=== PATIENT | female | born 1955 | race Caucasian/White ===

== ENCOUNTER 2017-10-09 12:34 | Inpatient (IN) | payer BC ==
--- NOTE | 2017-10-09 14:19 | PDOC ---
History of Present Illness - General Chief Complaint: Pain Stated Complaint: ABD CRAMPS Time Seen by Provider: 10/09/17 13:57 History Source: Patient Exam Limitations: No Limitations - History of Present Illness Initial Comments: CHIEF COMPLAINT: 62 y/o afebrile female with PMH NIDDM c/o worsening lower abdominal cramping for the past 3 days. HISTORY OF PRESENT ILLNESS: The patient admits to nausea and loose stools. She denies fever, chills, vomiting, CP, SOB, back pain, hematuria, dysuria. She has not taken anything for pain today. She does admit her and her ate out 4 days ago - she had chicken wings and salad but does not believe the salad had angie lettuce in it. Vital signs on arrival are notable for pulse of 99. REVIEW OF SYSTEMS: GENERAL/CONSTITUTIONAL: No fever/chills. No weakness. No weight change. HEAD, EYES, EARS, NOSE AND THROAT: No change in vision. No ear pain or discharge. No sore throat. CARDIOVASCULAR: No chest pain or shortness of breath. RESPIRATORY: No cough, wheezing, or hemoptysis. GASTROINTESTINAL: +abdominal cramping with nausea and loose stools. No vomiting or constipation. GENITOURINARY: No dysuria, frequency, or change in urination. MUSCULOSKELETAL: No joint or muscle swelling or pain. No neck or back pain. SKIN: No rash or easy bruising. NEUROLOGIC: No headache, vertigo, loss of consciousness, or loss of sensation. PHYSICAL EXAM: GENERAL: The patient is awake, alert, and fully oriented, in moderate discomfort. HEAD: Normal with no signs of trauma. ENT: Pupils equal, round and reactive to light, extraocular movements intact, sclera anicteric, conjunctiva clear. Neck supple. LUNGS: Clear to auscultation bilaterally. Normal excursion. No respiratory distress or use of accessory muscles. CV: RRR, S1/S2, no MRG. Cap refill < 2 sec. ABDOMEN: +[place] TTP. +TTP of suprapubic and LLQ. Passive guarding. +psoas sign. Negative orburator sign. No rebound TTP. Negative Susy sign. Decreased BS in lower quadrants. Soft, non-distended. EXTREMITIES: Normal range of motion, no edema. NEUROLOGICAL: Normal speech, normal gait. CN II-XII grossly intact. SKIN: Warm, dry, normal turgor, no rashes or lesions noted. Past History - Past Medical History Allergies/Adverse Reactions: Allergies Allergy/AdvReac Type Severity Reaction Status Date / Time Nitrate Analogues Allergy Verified 10/09/17 14:36 nitrates Allergy Intermediate sleepy Uncoded 09/09/15 14:59 Home Medications: Ambulatory Orders metFORMIN HCL [Glucophage -] 500 mg PO DAILY 11/22/12 Liraglutide [Victoza -] 1.8 mg SQ DAILY@0700 10/09/17 Anemia: Yes Asthma: No Cancer: No Cardiac Disorders: No CVA: No COPD: No CHF: No DVT: No Dementia: No Diabetes: Yes (NIDDM) GI Disorders: No Disorders: Yes (uterine fibroids) HTN: No Hypercholesterolemia: No Kidney Stones: Yes Liver Disease: No Seizures: No Thyroid Disease: No - Surgical History Abdominal Surgery: No Appendectomy: No Cardiac Surgery: No Cholecystectomy: No Lung Surgery: No Neurologic Surgery: No Orthopedic Surgery: No - Reproductive History Tubal Ligation: Yes - Suicide/Smoking/Psychosocial Hx Smoking Status: Yes Smoking History: Never smoked Have you smoked in the past 12 months: No Number of Cigarettes Smoked Daily: 0 If you are a former smoker, when did you quit?: 40YRS AGO Information on smoking cessation initiated: No Hx Alcohol Use: Yes (SOCIAL) Drug/Substance Use Hx: No Substance Use Type: None Hx Substance Use Treatment: No *Physical Exam - Vital Signs Last Vital Signs Temp Pulse Resp BP Pulse Ox 98.3 F 99 H 18 145/81 100 10/09/17 12:44 10/09/17 12:44 10/09/17 12:44 10/09/17 12:44 10/09/17 12:44 ED Treatment Course - LABORATORY CBC & Chemistry Diagram: 10/09/17 14:30 10/09/17 14:30 Medical Decision Making - Medical Decision Making A/P: 62 y/o female with lower abdominal cramping pain, TTP with nausea and loose stools. Will r/o appendicitis, diverticulitis. Plan is as follows: 1. UA/culture/hcg 2. Labs 3. IV fluids 4. IV morphine 5. CT scan abd/pelvis CT scan abd/pelvis IMPRESSION: No evidence of acute appendicitis. Diverticulosis with acute diverticulitis involving the proximal sigmoid colon, questionable couple of tiny extraluminal air pockets, significant stranding of the surrounding fat and a small amount of free fluid without gross evidence of an abscess/drainable collection. Spoke with Dr. Curry who wants her admitted to Dr. Bina Curran is gone, hospitalist handles admission until morning. ADDRESS CHANGE CLERK Ramez accepts admission on behalf of Dr. Grimaldo. Patient and made aware. Patient made NPO, blood cultures and abx ordered. Patient's pain has improved. *DC/Admit/Observation/Transfer Diagnosis at time of Disposition: Diverticulitis - Discharge Dispostion Condition at time of disposition: Stable Admit: Yes - Referrals Referrals: Balta Curry MD [Primary Care Provider] - - Patient Instructions - Post Discharge Activity
[2017-10-09] MEDS ORDERED: SODIUM CHLORIDE 1,000 ML IV STA (14:20)
[2017-10-09] MEDS ORDERED: morphine SULFATE 4 MG/ML VIAL IVPUSH ONE (14:20)
[2017-10-09] MEDS ORDERED: morphine SULFATE 4 MG/ML VIAL ONE ×3 (14:34→20:08)
[2017-10-09 14:38] LABS: BASO % 0.5 % (0-2.0); EOS % 0.7 % (0-4.5); HEMATOCRIT 38.9 % (32.4-45.2); HEMOGLOBIN 13.2 GM/dL (10.7-15.3); LYMPH % 15.1 % (8-40); MCH 27.4 pg (25.7-33.7); MEAN CELL VOLUME 80.5 fl (80-96); MEAN PLT VOLUME 7.5 fl (7.5-11.1); MONO % 8.1 % (3.8-10.2); NEUT % 75.6 % (42.8-82.8); PLATELET COUNT 250 K/MM3 (134-434); RBC 4.84 M/mm3 (3.60-5.2); RDW 13.9 % (11.6-15.6)
[2017-10-09 14:50] LABS: URINE APPEARANCE SLCLOUDY; URINE BILIRUBIN NEGATIVE (<2.0 mg/dL); URINE BLOOD 1+ (NEGATIVE); URINE COLOR YELLOW; URINE GLUCOSE (UA) 1+ (NEGATIVE); URINE KETONE NEGATIVE (NEGATIVE); URINE LEUK ESTERASE NEGATIVE (NEGATIVE); URINE NITRITE NEGATIVE (NEGATIVE); URINE PROTEIN NEGATIVE (NEGATIVE); URINE UROBILINOGEN NEGATIVE mg/dL (0.2-1.0)
[2017-10-09 14:51] LABS: INR 1.05 (0.82-1.09); PROTHROMBIN TIME (PATIENT) 11.9 SEC (9.7-13.0)
[2017-10-09 14:54] LABS: EPI CELLS RARE /HPF (FEW); URINE MUCUS RARE
[2017-10-09 15:01] LABS: ALBUMIN 3.6 g/dl (3.4-5.0); ANION GAP 7 (8-16); BILIRUBIN,TOTAL 0.7 mg/dL (0.2-1.0); BLOOD UREA NITROGEN 8 mg/dL (7-18); CALCIUM 8.7 mg/dL (8.5-10.1); CHLORIDE 106 mmol/L (98-107); CO2 26 mmol/L (21-32); CREATININE 0.7 mg/dL (0.55-1.02); GLUCOSE,RANDOM 149 mg/dL (74-106); POTASSIUM 3.7 mmol/L (3.5-5.1); SGOT/AST 10 U/L (15-37); SGPT/ALT 15 U/L (12-78); SODIUM 139 mmol/L (136-145)
[2017-10-09 15:02] LABS: ALK PHOS 97 U/L (45-117)
[2017-10-09] MEDS ORDERED: morphine CARPU-JECT 2 MG/1 ML DISP.SYRIN IVPUSH ONE (16:24)
[2017-10-09] MEDS ORDERED: CIPROFLOXACIN 400 MG/D5W 400 MG/200 ML IVPB IVPB ONE (17:32)
--- NOTE | 2017-10-09 17:42 | HP ---
CHIEF COMPLAINT: Abdominal pain PCP: Dr. Curry HISTORY OF PRESENT ILLNESS: 62 year-old female with a PMH significant for NIDDM, kidney stones, uterine fibroids/anemia, and s/p abdominal surgeries (tubal ligation, x 1). Presents to the ED today with lower abdominal cramping, nausea, and loose stools x 3 days. Denies fever, sweats, chills. Denies vomiting. No dysuria, frequency, hematuria or hesitancy. No hematochezia or melena. ER course was notable for: (1) WBC 14.0, p 99, BP 145/81 (2) CTAP: acute diverticulitis of proximal sigmoid colon, questionable couple of tiny extraluminal air pockets, significant stranding of surrounding fat and a small amount of free fluid without gross evidence of abscess/drainable collection Recent Travel: - June (no one ill) PAST MEDICAL HISTORY: NIDDM Kidney stones Uterine fibroids Anemia PAST SURGICAL HISTORY: Tubal ligation C-sections Social History: Smoking: quit 40 years ago Alcohol: social Drugs: no Family History: non-contributoryu Allergies Nitrate Analogues Allergy (Verified 10/09/17 14:36) nitrates Allergy (Intermediate, Uncoded 09/09/15 14:59) sleepy nitrates in foods-will sleep for 3hrs after same HOME MEDICATIONS: Home Medications Medication Instructions Recorded metFORMIN HCL [Glucophage -] 500 mg PO DAILY 11/22/12 Liraglutide [Victoza -] 1.8 mg SQ DAILY@0700 10/09/17 REVIEW OF SYSTEMS CONSTITUTIONAL: Absent: fever, chills, diaphoresis, generalized weakness, malaise, loss of appetite, weight change HEENT: Absent: rhinorrhea, nasal congestion, throat pain, throat swelling, difficulty swallowing, mouth swelling, ear pain, eye pain, visual changes CARDIOVASCULAR: Absent: chest pain, syncope, palpitations, irregular heart rate, lightheadedness , peripheral edema RESPIRATORY: Absent: cough, shortness of breath, dyspnea with exertion, orthopnea, wheezing, stridor, hemoptysis GASTROINTESTINAL: +abdominal pain, nausea, loose stools Absent: abdominal distension, vomiting, constipation, melena, hematochezia GENITOURINARY: Absent: dysuria, frequency, urgency, hesitancy, hematuria, flank pain, genital pain MUSCULOSKELETAL: Absent: myalgia, arthralgia, joint swelling, back pain, neck pain SKIN: Absent: rash, itching, pallor HEMATOLOGIC/IMMUNOLOGIC: Absent: easy bleeding, easy bruising, lymphadenopathy, frequent infections ENDOCRINE: Absent: unexplained weight gain, unexplained weight loss, heat intolerance, cold intolerance NEUROLOGIC: Absent: headache, focal weakness or paresthesias, dizziness, unsteady gait, seizure, mental status changes, bladder or bowel incontinence PSYCHIATRIC: Absent: anxiety, depression, suicidal or homicidal ideation, hallucinations. PHYSICAL EXAMINATION Vital Signs - 24 hr 10/09/17 12:44 Temperature 98.3 F Pulse Rate 99 H Respiratory 18 Rate Blood Pressure 145/81 O2 Sat by Pulse 100 Oximetry (%) GENERAL: Awake, alert, and fully oriented, in no acute distress. HEAD: Normal with no signs of trauma. EYES: Pupils equal, round and reactive to light, extraocular movements intact, sclera anicteric, conjunctiva clear. No lid lag. EARS, NOSE, THROAT: Ears normal, nares patent, oropharynx clear without exudates. Moist mucous membranes. NECK: Normal range of motion, supple without lymphadenopathy, JVD, or masses. LUNGS: Breath sounds equal, clear to auscultation bilaterally. No wheezes, and no crackles. No accessory muscle use. HEART: Regular rate and rhythm, normal S1 and S2 ABDOMEN: Soft, diffusely tender, +guarding; +bowel sounds MUSCULOSKELETAL: Normal range of motion at all joints. No bony deformities or tenderness. No CVA tenderness. UPPER EXTREMITIES: 2+ pulses, warm, well-perfused. No cyanosis. No clubbing. No peripheral edema. LOWER EXTREMITIES: 2+ pulses, warm, well-perfused. No calf tenderness. No peripheral edema. NEUROLOGICAL: Cranial nerves II-XII intact. Normal speech. Laboratory Results - last 24 hr 10/09/17 10/09/17 10/09/17 14:30 14:30 14:30 WBC 14.0 H D RBC 4.84 Hgb 13.2 Hct 38.9 MCV 80.5 MCH 27.4 MCHC 34.0 RDW 13.9 Plt Count 250 MPV 7.5 Neutrophils % 75.6 D Lymphocytes % 15.1 D Monocytes % 8.1 Eosinophils % 0.7 Basophils % 0.5 PT with INR 11.90 INR 1.05 Sodium Potassium Chloride Carbon Dioxide Anion Gap BUN Creatinine Creat Clearance w eGFR Random Glucose Calcium Total Bilirubin AST ALT Alkaline Phosphatase Total Protein Albumin Urine Color Yellow Urine Appearance Slcloudy Urine pH 5.0 Ur Specific [place] 1.021 Urine Protein Negative Urine Glucose (UA) 1+ H Urine Ketones Negative Urine Blood 1+ H Urine Nitrite Negative Urine Bilirubin Negative Urine Urobilinogen Negative Ur Leukocyte Esterase Negative Urine WBC (Auto) 2 Urine RBC (Auto) <1 Ur Epithelial Cells Rare Urine Mucus Rare Blood Type Antibody Screen 10/09/17 10/09/17 14:30 14:30 WBC RBC Hgb Hct MCV MCH MCHC RDW Plt Count MPV Neutrophils % Lymphocytes % Monocytes % Eosinophils % Basophils % PT with INR INR Sodium 139 Potassium 3.7 Chloride 106 Carbon Dioxide 26 Anion Gap 7 L BUN 8 Creatinine 0.7 Creat Clearance w eGFR > 60 Random Glucose 149 H Calcium 8.7 Total Bilirubin 0.7 D AST 10 L ALT 15 Alkaline Phosphatase 97 Total Protein 7.0 Albumin 3.6 Urine Color Urine Appearance Urine pH Ur Specific [place] Urine Protein Urine Glucose (UA) Urine Ketones Urine Blood Urine Nitrite Urine Bilirubin Urine Urobilinogen Ur Leukocyte Esterase Urine WBC (Auto) Urine RBC (Auto) Ur Epithelial Cells Urine Mucus Blood Type O POSITIVE Antibody Screen Negative ASSESSMENT/PLAN 62 year-old female with a PMH significant for NIDDM, kidney stones, uterine fibroids/anemia, and s/p multiple abdominal surgeries (tubal ligation, C- section x 1). Admitted for sepsis secondary to diverticulitis. Sepsis secondary to diverticulitis --on admission WBC 14.0, p 99, diverticulitis on CTAP --lactic acid x 2 pending --given 1L NS in ED; bolus a second liter NS now, then continue @100mL/hr --start ceftriaxone and IV metronidazole --morphine, Tylenol PRN for pain --colonoscopy 3 months ago; advised of diverticulosis and single polyp removed --surgical and GI consults requested NIDDM --Novolog sliding scale coverage Kidney stones --no acute issues Uterine fibroids/anemia --h/h stable FEN Fluids: as above Electrolytes: replete as indicated Nutrition: NPO DVT prophylaxis: subq heparin Dispo: continues to require inpatient care. Full Code. Visit type - Emergency Visit Emergency Visit: Yes ED Registration Date: 10/09/17 Care time: The patient presented to the Emergency Department on the above date and was hospitalized for further evaluation of their emergent condition. - New Patient This patient is new to me today: Yes Date on this admission: 10/09/17 - Critical Care Critical Care patient: No Hospitalist Screening - Colonoscopy Questionnaire Colonoscopy Questionnaire: Colonoscopy Questionnaire - Patient: 50 - 75 years old and never had a screening colonoscopy: No History of colon or rectal polyps, or CA: No History of IBD, Crohn's disease or UC: No History of abdominal radiation therapy as a child: No - Relative: 1 with colon or rectal CA, or polyps at age 60 or younger: Unknown Colon or rectal CA diagnosed at age 45 or younger: Unknown Multiple relatives with colon or rectal CA: Unknown (Colonoscopy 3 months ago; single polyp removed) - Outcome: Screening Result: Negative Screen
[2017-10-09] MEDS ORDERED: CEFTRIAXONE 2 GM/100 ML BAG IVPB ONE (18:27)
[2017-10-09] MEDS: CEFTRIAXONE 2 GM-D5W BAG 2 GM/50 ML BAG IVPB SCH (18:29)
[2017-10-09] MEDS ORDERED: SODIUM CHLORIDE 500 ML IV STA (18:41)
[2017-10-09] MEDS: SODIUM CHLORIDE 1,000 ML IV SCH ×2 (19:11→23:57)
[2017-10-09] MEDS ORDERED: morphine CARPU-JECT 2 MG/1 ML DISP.SYRIN IVPUSH PRN (19:29)
[2017-10-09] MEDS: morphine SULFATE 4 MG/ML VIAL IVPUSH PRN (20:15)
[2017-10-09] MEDS: INSULIN SLIDING SCALE (NOVOLOG) 1 VIAL SQ SCH (22:18)
[2017-10-09 23:51] VITALS: BMI 34.9
[2017-10-10] MEDS: morphine SULFATE 4 MG/ML VIAL IVPUSH PRN ×4 (00:23→22:55)
[2017-10-10] MEDS: HEPARIN NA (PORCINE) 5,000 UNITS/ML 1ML VIAL SQ SCH ×3 (05:52→21:23)
[2017-10-10] MEDS: INSULIN SLIDING SCALE (NOVOLOG) 1 VIAL SQ SCH ×4 (06:02→21:49)
[2017-10-10 07:47] LABS: BASO % 0.3 % (0-2.0); EOS % 0.4 % (0-4.5); HEMATOCRIT 36.1 % (32.4-45.2); HEMOGLOBIN 12.3 GM/dL (10.7-15.3); MCH 27.4 pg (25.7-33.7); MCHC 34.2 g/dl (32.0-36.0); MEAN PLT VOLUME 7.8 fl (7.5-11.1); MONO % 9.3 % (3.8-10.2); PLATELET COUNT 230 K/MM3 (134-434); RBC 4.51 M/mm3 (3.60-5.2); RDW 13.7 % (11.6-15.6); WHITE BLOOD COUNT 14.7 K/mm3 (4.0-10.0)
[2017-10-10 08:07] LABS: ALBUMIN 3.2 g/dl (3.4-5.0); ANION GAP 10 (8-16); BLOOD UREA NITROGEN 5 mg/dL (7-18); CALCIUM 8.3 mg/dL (8.5-10.1); CHLORIDE 103 mmol/L (98-107); CO2 26 mmol/L (21-32); MAGNESIUM 1.7 mg/dL (1.8-2.4); POTASSIUM 3.6 mmol/L (3.5-5.1); SODIUM 139 mmol/L (136-145)
[2017-10-10 08:11] LABS: ALK PHOS 85 U/L (45-117); BILIRUBIN,TOTAL 1.1 mg/dL (0.2-1.0); CREATININE 0.7 mg/dL (0.55-1.02); GLUCOSE,RANDOM 174 mg/dL (74-106); PHOSPHOROUS 2.8 mg/dL (2.5-4.9); SGOT/AST 8 U/L (15-37); SGPT/ALT 13 U/L (12-78); TOT PROT 6.3 g/dl (6.4-8.2)
[2017-10-10] MEDS: ACETAMINOPHEN 325 MG TABLET (FP) PO PRN (09:47)
--- NOTE | 2017-10-10 10:33 | CONSULT ---
- Consultation REQUESTING PROVIDER: Ramez FULLER CONSULT REQUEST: We have been asked to surgically evaluate this patient for management of acute sigmoid diverticulitis PCP:Lg Curran MD HISTORY OF PRESENT ILLNESS: 62 y/o female presented to the ER w/ LLQ sharp pain of sudden onset w/o nausea and/or vomiting; w/u in the ER is c/w acute diverticulitis; she had a colonoscopy 6 months ago and has known diverticulosis a/t her. PMHx: NIDDM PSHx: None Home Medications Medication Instructions Recorded metFORMIN HCL [Glucophage -] 500 mg PO DAILY 11/22/12 Liraglutide [Victoza -] 1.8 mg SQ DAILY@0700 10/09/17 Allergies Allergy/AdvReac Type Severity Reaction Status Date / Time Nitrate Analogues Allergy Verified 10/09/17 14:36 nitrates Allergy Intermediate sleepy Uncoded 09/09/15 14:59 PHYSICAL EXAM: GENERAL: Awake, alert, and fully oriented, in no acute distress. HEAD: Normal with no signs of trauma. ABDOMEN: Soft, tender LLQ w/localized guarding, not distended, normoactive bowel sounds, , no masses; no hernias. No organomegaly. MUSCULOSKELETAL: Normal ROM at all joints. No bony deformities or tenderness. No CVA tenderness. UPPER EXTREMITIES: 2+ pulses, warm, well-perfused. No cyanosis. Cap refill <2 seconds. No peripheral edema. LOWER EXTREMITIES: 2+ pulses, warm, well-perfused. No calf tenderness. No peripheral edema. NEUROLOGICAL: Normal speech, gait not observed. PSYCH: Cooperative. Good eye contact. Appropriate mood and affect. SKIN: Warm, dry, normal turgor, no rashes or lesions noted. Vital Signs Temperature 100.3 F H 10/10/17 06:57 Pulse Rate 100 H 10/10/17 06:57 Respiratory Rate 21 10/10/17 06:57 Blood Pressure 115/60 10/10/17 06:57 O2 Sat by Pulse Oximetry (%) 95 10/09/17 21:00 Lab Results WBC 14.7 K/mm3 (4.0-10.0) H 10/10/17 06:30 RBC 4.51 M/mm3 (3.60-5.2) 10/10/17 06:30 Hgb 12.3 GM/dL (10.7-15.3) 10/10/17 06:30 Hct 36.1 % (32.4-45.2) 10/10/17 06:30 MCV 80.0 fl (80-96) 10/10/17 06:30 MCHC 34.2 g/dl (32.0-36.0) 10/10/17 06:30 RDW 13.7 % (11.6-15.6) 10/10/17 06:30 Plt Count 230 K/MM3 (134-434) 10/10/17 06:30 Sodium 139 mmol/L (136-145) 10/10/17 06:30 Potassium 3.6 mmol/L (3.5-5.1) 10/10/17 06:30 Chloride 103 mmol/L (98-107) 10/10/17 06:30 Carbon Dioxide 26 mmol/L (21-32) 10/10/17 06:30 Anion Gap 10 (8-16) 10/10/17 06:30 BUN 5 mg/dL (7-18) L 10/10/17 06:30 Creatinine 0.7 mg/dL (0.55-1.02) 10/10/17 06:30 Random Glucose 174 mg/dL (74-106) H 10/10/17 06:30 Calcium 8.3 mg/dL (8.5-10.1) L 10/10/17 06:30 Blood Type O POSITIVE 10/09/17 14:30 Antibody Screen Negative 10/09/17 14:30 INR 1.05 (0.82-1.09) 10/09/17 14:30 CT scan a/p reviewed IMP: sigmoid diverticulitis w/microperforation; no abscess; no drainable collection o/w. PLAN: NPO/IVF/IVABS; d/w patient possibility of urgent Hartmans procedure if she does not respond to the conservative tx. plan or progresses; she understands this; will f/u. Shahid Worthy MD FACS Visit type - Case Type Case Type: ED Admission - Emergency Emergency Visit: Yes ED Registration Date: 10/09/17 Care time: The patient presented to the Emergency Department on the above date and was hospitalized for further evaluation of their emergent condition. - New patient This patient is new to me today: Yes Date on this admission: 10/11/17 - Critical Care Critical Care patient: No
[2017-10-10] MEDS ORDERED: MAGNESIUM SULF 50% (8.12 MEQ/2 ML-1 GM VIAL) IVPB ONE (11:18)
[2017-10-10] MEDS ORDERED: DEXTROSE 5%-WATER 100 ML IVPB ONE (11:19)
--- NOTE | 2017-10-10 11:24 | PN ---
Progress Note, Physician Chief Complaint: Ms Newton says she is feeling better. Still with abdominal pain with movement but none at rest. No cp or sob. - Current Medication List Current Medications: Active Medications Acetaminophen (Tylenol -) 650 mg PO Q6H PRN PRN Reason: PAIN LEVEL 1-5 Last Admin: 10/10/17 09:47 Dose: 650 mg Heparin Sodium (Porcine) (Heparin -) 5,000 unit SQ TID [facility] Last Admin: 10/10/17 05:52 Dose: 5,000 unit Sodium Chloride (Normal Saline -) 1,000 mls @ 100 mls/hr IV ASDIR NILESH Last Admin: 10/09/17 23:57 Dose: 100 mls/hr Metronidazole (Flagyl 500mg Premixed Ivpb -) 500 mg in 100 mls @ 100 mls/hr IVPB Q8H-IV NILESH Last Admin: 10/10/17 09:50 Dose: 100 mls/hr Ceftriaxone Sodium 2 gm/ (Dextrose) 100 mls @ 100 mls/hr IVPB DAILY NILESH PRN Reason: Protocol Magnesium Sulfate (Magnesium Sulf 2 G/50 Ml Bag) 2 gm in 50 mls @ 50 mls/hr IVPB ONCE ONE Stop: 10/10/17 13:59 Insulin Aspart (Novolog Vial Sliding Scale -) 1 vial SQ ACHS NILESH PRN Reason: Protocol Last Admin: 10/10/17 06:02 Dose: Not Given Morphine Sulfate (Morphine Sulfate) 2 mg IVPUSH Q4H PRN PRN Reason: PAIN LEVEL 6-10 Last Admin: 10/10/17 05:54 Dose: 2 mg - Objective Vital Signs: Vital Signs Temperature 37.9 C H 10/10/17 06:57 Pulse Rate 100 H 10/10/17 06:57 Respiratory Rate 21 10/10/17 06:57 Blood Pressure 115/60 10/10/17 06:57 O2 Sat by Pulse Oximetry (%) 95 10/09/17 21:00 Constitutional: Yes: Well Nourished, No Distress, Calm Cardiovascular: Yes: Regular Rate and Rhythm. No: Gallop, Murmur, Rub Respiratory: Yes: Regular, CTA Bilaterally. No: Rales, Rhonchi, Wheezes Gastrointestinal: Yes: Soft, Hypoactive Bowel Sounds, Tenderness. No: Normal Bowel Sounds, Distention Extremities: Yes: WNL Edema: No Labs: CBC, BMP 10/10/17 06:30 10/10/17 06:30 INR, PTT INR 1.05 (0.82-1.09) 10/09/17 14:30 Problem List - Problems (1) Acute diverticulitis Assessment/Plan: -appreciate GI and general surgery assistance -case d/w Dr Worthy -continue npo -continue rocephin and flagyl -continue IVF while npo -monitor for improvement Code(s): K57.92 - DVTRCLI OF INTEST, PART UNSP, W/O PERF OR ABSCESS W/O BLEED (2) Diabetes type 2, controlled Assessment/Plan: -currently npo -controlled -may need D5 1/2NS if becomes hypoglycemic Code(s): E11.9 - TYPE 2 DIABETES MELLITUS WITHOUT COMPLICATIONS Qualifiers: Diabetes mellitus care home insulin use: without care home use Diabetes mellitus complication status: without complication Qualified Code(s): E11.9 - Type 2 diabetes mellitus without complications
[2017-10-10] MEDS: CEFTRIAXONE 2 GM-D5W BAG 2 GM/50 ML BAG IVPB SCH (11:33)
[2017-10-10] MEDS ORDERED: MAGNESIUM SULFATE IN WATER 2 GM/50 ML IVPB IVPB ONE (13:00)
--- NOTE | 2017-10-10 13:06 | CON.GI ---
Consult Consult Specialty:: GI Reason for Consultation:: lower abdominal pain since Monday - History of Present Illness History of Present Illness: chart reviewed. Events noted. A 62-year-old female who developed lower abdominal pressure on Monday And on Monday developed left lower quadrant abdominal pain, that led her to ED visit. The pain was severe, nonradiating, not associated with Diet, activities, stressors, bowel movements, nausea, vomiting, change in bowel habits. No fever , chills, jaundice, melena, hematochezia, or mucus in stool. No prodromal event such as changes in diet, medications, antibiotics, travel, exposure to you , dining out, camping. Chronically constipated and takes laxatives when necessary. Denies dysphagia, odynophagia, dyspepsia. Had colonoscopy [address] Arceo. It showed diverticulosis. A small polyp was removed as well. - History Source History Provided By: Patient Limitations to Obtaining History: No Limitations - Past Medical History ...LMP: 08/28/12 - Alcohol/Substance Use Hx Alcohol Use: Yes (SOCIAL) - Smoking History Smoking history: Never smoked Have you smoked in the past 12 months: No Aproximately how many cigarettes per day: 0 If you are a former smoker, when did you quit?: 40YRS AGO Home Medications - Allergies Allergies/Adverse Reactions: Allergies Allergy/AdvReac Type Severity Reaction Status Date / Time Nitrate Analogues Allergy Verified 10/09/17 14:36 nitrates Allergy Intermediate sleepy Uncoded 09/09/15 14:59 - Home Medications Home Medications: Ambulatory Orders metFORMIN HCL [Glucophage -] 500 mg PO DAILY 11/22/12 Liraglutide [Victoza -] 1.8 mg SQ DAILY@0700 10/09/17 Family Disease History - Family Disease History Family History: Unremarkable Review of Systems Findings/Remarks: as per H&P in HPI, otherwise negative Physical Exam-GI Vital Signs: Vital Signs Temperature 100.3 F H 10/10/17 06:57 Pulse Rate 100 H 10/10/17 06:57 Respiratory Rate 21 10/10/17 06:57 Blood Pressure 115/60 10/10/17 06:57 O2 Sat by Pulse Oximetry (%) 95 10/09/17 21:00 Constitutional: Yes: Well Nourished, No Distress, Calm Eyes: Yes: Conjunctiva Clear HENT: Yes: Atraumatic Neck: Yes: Supple Cardiovascular: Yes: Regular Rate and Rhythm Respiratory: Yes: Regular Gastrointestinal Inspection: Yes: Ascites. No: Distention ...Palpate: Yes: Guarding, Soft, Tenderness ( left lower quadrant), Tenderness, Rebound. No: Firm/Rigid, Mass Neurological: Yes: Alert, Oriented Labs: CBC, BMP 10/10/17 06:30 10/10/17 06:30 INR, PTT INR 1.05 (0.82-1.09) 10/09/17 14:30 Laboratory Tests 10/09/17 10/09/17 10/09/17 14:30 14:30 14:30 WBC 14.0 H D RBC 4.84 Hgb 13.2 Hct 38.9 MCV 80.5 MCH 27.4 MCHC 34.0 RDW 13.9 Plt Count 250 MPV 7.5 Neutrophils % 75.6 D Lymphocytes % 15.1 D Monocytes % 8.1 Eosinophils % 0.7 Basophils % 0.5 PT with INR 11.90 INR 1.05 Sodium Potassium Chloride Carbon Dioxide Anion Gap BUN Creatinine Creat Clearance w eGFR POC Glucometer Random Glucose Lactic Acid Calcium Phosphorus Magnesium Total Bilirubin AST ALT Alkaline Phosphatase Total Protein Albumin Urine Color Yellow Urine Appearance Slcloudy Urine pH 5.0 Ur Specific [place] 1.021 Urine Protein Negative Urine Glucose (UA) 1+ H Urine Ketones Negative Urine Blood 1+ H Urine Nitrite Negative Urine Bilirubin Negative Urine Urobilinogen Negative Ur Leukocyte Esterase Negative Urine WBC (Auto) 2 Urine RBC (Auto) <1 Ur Epithelial Cells Rare Urine Mucus Rare Blood Type Antibody Screen 10/09/17 10/09/17 10/09/17 14:30 14:30 20:28 WBC RBC Hgb Hct MCV MCH MCHC RDW Plt Count MPV Neutrophils % Lymphocytes % Monocytes % Eosinophils % Basophils % PT with INR INR Sodium 139 Potassium 3.7 Chloride 106 Carbon Dioxide 26 Anion Gap 7 L BUN 8 Creatinine 0.7 Creat Clearance w eGFR > 60 POC Glucometer Random Glucose 149 H Lactic Acid 1.9 Calcium 8.7 Phosphorus Magnesium Total Bilirubin 0.7 D AST 10 L ALT 15 Alkaline Phosphatase 97 Total Protein 7.0 Albumin 3.6 Urine Color Urine Appearance Urine pH Ur Specific [place] Urine Protein Urine Glucose (UA) Urine Ketones Urine Blood Urine Nitrite Urine Bilirubin Urine Urobilinogen Ur Leukocyte Esterase Urine WBC (Auto) Urine RBC (Auto) Ur Epithelial Cells Urine Mucus Blood Type O POSITIVE Antibody Screen Negative 10/09/17 10/09/17 10/10/17 21:45 22:14 05:49 WBC RBC Hgb Hct MCV MCH MCHC RDW Plt Count MPV Neutrophils % Lymphocytes % Monocytes % Eosinophils % Basophils % PT with INR INR Sodium Potassium Chloride Carbon Dioxide Anion Gap BUN Creatinine Creat Clearance w eGFR POC Glucometer 162 193 Random Glucose Lactic Acid 1.0 Calcium Phosphorus Magnesium Total Bilirubin AST ALT Alkaline Phosphatase Total Protein Albumin Urine Color Urine Appearance Urine pH Ur Specific [place] Urine Protein Urine Glucose (UA) Urine Ketones Urine Blood Urine Nitrite Urine Bilirubin Urine Urobilinogen Ur Leukocyte Esterase Urine WBC (Auto) Urine RBC (Auto) Ur Epithelial Cells Urine Mucus Blood Type Antibody Screen 10/10/17 10/10/17 10/10/17 06:30 06:30 11:38 WBC 14.7 H RBC 4.51 Hgb 12.3 Hct 36.1 MCV 80.0 MCH 27.4 MCHC 34.2 RDW 13.7 Plt Count 230 MPV 7.8 Neutrophils % 79.0 Lymphocytes % 11.0 D Monocytes % 9.3 Eosinophils % 0.4 Basophils % 0.3 PT with INR INR Sodium 139 Potassium 3.6 Chloride 103 Carbon Dioxide 26 Anion Gap 10 BUN 5 L Creatinine 0.7 Creat Clearance w eGFR > 60 POC Glucometer 158 Random Glucose 174 H Lactic Acid Calcium 8.3 L Phosphorus 2.8 Magnesium 1.7 L Total Bilirubin 1.1 H D AST 8 L ALT 13 Alkaline Phosphatase 85 Total Protein 6.3 L Albumin 3.2 L Urine Color Urine Appearance Urine pH Ur Specific [place] Urine Protein Urine Glucose (UA) Urine Ketones Urine Blood Urine Nitrite Urine Bilirubin Urine Urobilinogen Ur Leukocyte Esterase Urine WBC (Auto) Urine RBC (Auto) Ur Epithelial Cells Urine Mucus Blood Type Antibody Screen Laboratory Last Values WBC 14.7 K/mm3 (4.0-10.0) H 10/10/17 06:30 RBC 4.51 M/mm3 (3.60-5.2) 10/10/17 06:30 Hgb 12.3 GM/dL (10.7-15.3) 10/10/17 06:30 Hct 36.1 % (32.4-45.2) 10/10/17 06:30 MCV 80.0 fl (80-96) 10/10/17 06:30 MCH 27.4 pg (25.7-33.7) 10/10/17 06:30 MCHC 34.2 g/dl (32.0-36.0) 10/10/17 06:30 RDW 13.7 % (11.6-15.6) 10/10/17 06:30 Plt Count 230 K/MM3 (134-434) 10/10/17 06:30 MPV 7.8 fl (7.5-11.1) 10/10/17 06:30 Neutrophils % 79.0 % (42.8-82.8) 10/10/17 06:30 Lymphocytes % 11.0 % (8-40) D 10/10/17 06:30 Monocytes % 9.3 % (3.8-10.2) 10/10/17 06:30 Eosinophils % 0.4 % (0-4.5) 10/10/17 06:30 Basophils % 0.3 % (0-2.0) 10/10/17 06:30 PT with INR 11.90 SEC (9.7-13.0) 10/09/17 14:30 INR 1.05 (0.82-1.09) 10/09/17 14:30 Sodium 139 mmol/L (136-145) 10/10/17 06:30 Potassium 3.6 mmol/L (3.5-5.1) 10/10/17 06:30 Chloride 103 mmol/L (98-107) 10/10/17 06:30 Carbon Dioxide 26 mmol/L (21-32) 10/10/17 06:30 Anion Gap 10 (8-16) 10/10/17 06:30 BUN 5 mg/dL (7-18) L 10/10/17 06:30 Creatinine 0.7 mg/dL (0.55-1.02) 10/10/17 06:30 Creat Clearance w eGFR > 60 (>60) 10/10/17 06:30 POC Glucometer 158 UNITS (80-120) 10/10/17 11:38 Random Glucose 174 mg/dL (74-106) H 10/10/17 06:30 Lactic Acid 1.0 mmol/L (0.0-2.0) 10/09/17 21:45 Calcium 8.3 mg/dL (8.5-10.1) L 10/10/17 06:30 Phosphorus 2.8 mg/dL (2.5-4.9) 10/10/17 06:30 Magnesium 1.7 mg/dL (1.8-2.4) L 10/10/17 06:30 Total Bilirubin 1.1 mg/dL (0.2-1.0) H D 10/10/17 06:30 AST 8 U/L (15-37) L 10/10/17 06:30 ALT 13 U/L (12-78) 10/10/17 06:30 Alkaline Phosphatase 85 U/L (45-117) 10/10/17 06:30 Total Protein 6.3 g/dl (6.4-8.2) L 10/10/17 06:30 Albumin 3.2 g/dl (3.4-5.0) L 10/10/17 06:30 Urine Color Yellow 10/09/17 14:30 Urine Appearance Slcloudy 10/09/17 14:30 Urine pH 5.0 (5.0-8.0) 10/09/17 14:30 Ur Specific [place] 1.021 (1.001-1.035) 10/09/17 14:30 Urine Protein Negative (NEGATIVE) 10/09/17 14:30 Urine Glucose (UA) 1+ (NEGATIVE) H 10/09/17 14:30 Urine Ketones Negative (NEGATIVE) 10/09/17 14:30 Urine Blood 1+ (NEGATIVE) H 10/09/17 14:30 Urine Nitrite Negative (NEGATIVE) 10/09/17 14:30 Urine Bilirubin Negative (<2.0 mg/dL) 10/09/17 14:30 Urine Urobilinogen Negative mg/dL (0.2-1.0) 10/09/17 14:30 Ur Leukocyte Esterase Negative (NEGATIVE) 10/09/17 14:30 Urine WBC (Auto) 2 /hpf (3-5) 10/09/17 14:30 Urine RBC (Auto) <1 /hpf (0-3) 10/09/17 14:30 Ur Epithelial Cells Rare /HPF (FEW) 10/09/17 14:30 Urine Mucus Rare 10/09/17 14:30 Blood Type O POSITIVE 10/09/17 14:30 Antibody Screen Negative 10/09/17 14:30 Imaging - Results Cat Scan: Report Reviewed Problem List - Problems (1) Acute diverticulitis Code(s): K57.92 - DVTRCLI OF INTEST, PART UNSP, W/O PERF OR ABSCESS W/O BLEED (2) Diverticulosis Code(s): K57.90 - DVRTCLOS OF INTEST, PART UNSP, W/O PERF OR ABSCESS W/O BLEED (3) Left lower quadrant abdominal tenderness Code(s): R10.814 - LEFT LOWER QUADRANT ABDOMINAL TENDERNESS (4) Left lower quadrant pain Code(s): R10.32 - LEFT LOWER QUADRANT PAIN Assessment/Plan Acute diverticulitis with local tenderness and guarding. Negative for abscess , or perforation, per CT scan report. Nontoxic appearance. Had colonoscopy 6 months ago (Diverticulosis, polyp) IV fluids, bowel rest, Cipro and Flagyl. Repeat CBC, CMP in a.m. Close monitoring for worsening abdominal symptoms. discussed with the patient.
[2017-10-10] MEDS: SODIUM CHLORIDE 1,000 ML IV SCH ×2 (17:22→21:50)
[2017-10-11] MEDS: HEPARIN NA (PORCINE) 5,000 UNITS/ML 1ML VIAL SQ SCH ×3 (06:47→21:23)
[2017-10-11] MEDS: SODIUM CHLORIDE 1,000 ML IV SCH ×2 (06:47→21:24)
[2017-10-11] MEDS: INSULIN SLIDING SCALE (NOVOLOG) 1 VIAL SQ SCH ×4 (07:24→21:23)
[2017-10-11 08:18] LABS: BASO % 0.6 % (0-2.0); EOS % 1.4 % (0-4.5); HEMOGLOBIN 11.4 GM/dL (10.7-15.3); LYMPH % 18.4 % (8-40); MCH 27.3 pg (25.7-33.7); MCHC 33.6 g/dl (32.0-36.0); MEAN CELL VOLUME 81.2 fl (80-96); MEAN PLT VOLUME 7.7 fl (7.5-11.1); MONO % 8.6 % (3.8-10.2); PLATELET COUNT 222 K/MM3 (134-434); RBC 4.19 M/mm3 (3.60-5.2); WHITE BLOOD COUNT 11.2 K/mm3 (4.0-10.0)
[2017-10-11 08:26] LABS: ANION GAP 7 (8-16); BLOOD UREA NITROGEN 6 mg/dL (7-18); CALCIUM 7.9 mg/dL (8.5-10.1); CHLORIDE 108 mmol/L (98-107); CO2 25 mmol/L (21-32); GLUCOSE,RANDOM 121 mg/dL (74-106); MAGNESIUM 2.1 mg/dL (1.8-2.4); POTASSIUM 3.7 mmol/L (3.5-5.1); SODIUM 140 mmol/L (136-145)
[2017-10-11 08:28] LABS: CREATININE 0.6 mg/dL (0.55-1.02)
[2017-10-11] MEDS ORDERED: DEXTROSE 5%-WATER 100 ML IVPB ONE (08:54)
[2017-10-11] MEDS: CEFTRIAXONE 2 GM in DEXTROSE 5%-WATER 100 ML IVPB SCH (08:59)
--- NOTE | 2017-10-11 10:17 | PN ---
Progress Note, Physician History of Present Illness: Still has LLQ tenderness, overal feels better and reports improvement. No events. - Current Medication List Current Medications: Active Medications Acetaminophen (Tylenol -) 650 mg PO Q6H PRN PRN Reason: PAIN LEVEL 1-5 Last Admin: 10/10/17 09:47 Dose: 650 mg Heparin Sodium (Porcine) (Heparin -) 5,000 unit SQ TID NILESH Last Admin: 10/11/17 06:47 Dose: 5,000 unit Sodium Chloride (Normal Saline -) 1,000 mls @ 100 mls/hr IV ASDIR NILESH Last Admin: 10/11/17 06:47 Dose: 100 mls/hr Metronidazole (Flagyl 500mg Premixed Ivpb -) 500 mg in 100 mls @ 100 mls/hr IVPB Q8H-IV NILESH Last Admin: 10/11/17 10:00 Dose: 100 mls/hr Ceftriaxone Sodium 2 gm/ (Dextrose) 100 mls @ 100 mls/hr IVPB DAILY NILESH PRN Reason: Protocol Last Admin: 10/11/17 08:59 Dose: 100 mls/hr Insulin Aspart (Novolog Vial Sliding Scale -) 1 vial SQ ACHS NILESH PRN Reason: Protocol Last Admin: 10/11/17 07:24 Dose: Not Given Morphine Sulfate (Morphine Sulfate) 2 mg IVPUSH Q4H PRN PRN Reason: PAIN LEVEL 6-10 Last Admin: 10/10/17 22:55 Dose: 2 mg - Objective Vital Signs: Vital Signs Temperature 98.8 F 10/11/17 08:56 Pulse Rate 86 10/11/17 08:56 Respiratory Rate 20 10/11/17 08:56 Blood Pressure 120/64 10/11/17 08:56 O2 Sat by Pulse Oximetry (%) 95 10/10/17 21:00 Constitutional: Yes: Well Nourished, No Distress, Calm Eyes: Yes: Conjunctiva Clear HENT: Yes: Atraumatic Neck: Yes: Supple Cardiovascular: Yes: Regular Rate and Rhythm Respiratory: Yes: Regular Gastrointestinal: Yes: Soft, Tenderness (LLQ) Neurological: Yes: Alert, Oriented Labs: CBC, BMP 10/11/17 07:40 10/11/17 07:40 INR, PTT INR 1.05 (0.82-1.09) 10/09/17 14:30 Laboratory Last Values WBC 11.2 K/mm3 (4.0-10.0) H 10/11/17 07:40 RBC 4.19 M/mm3 (3.60-5.2) 10/11/17 07:40 Hgb 11.4 GM/dL (10.7-15.3) 10/11/17 07:40 Hct 34.0 % (32.4-45.2) 10/11/17 07:40 MCV 81.2 fl (80-96) 10/11/17 07:40 MCH 27.3 pg (25.7-33.7) 10/11/17 07:40 MCHC 33.6 g/dl (32.0-36.0) 10/11/17 07:40 RDW 14.0 % (11.6-15.6) 10/11/17 07:40 Plt Count 222 K/MM3 (134-434) 10/11/17 07:40 MPV 7.7 fl (7.5-11.1) 10/11/17 07:40 Neutrophils % 71.0 % (42.8-82.8) 10/11/17 07:40 Lymphocytes % 18.4 % (8-40) D 10/11/17 07:40 Monocytes % 8.6 % (3.8-10.2) 10/11/17 07:40 Eosinophils % 1.4 % (0-4.5) D 10/11/17 07:40 Basophils % 0.6 % (0-2.0) 10/11/17 07:40 ESR 46 mm/hr (0-30) H 10/11/17 07:40 PT with INR 11.90 SEC (9.7-13.0) 10/09/17 14:30 INR 1.05 (0.82-1.09) 10/09/17 14:30 Sodium 140 mmol/L (136-145) 10/11/17 07:40 Potassium 3.7 mmol/L (3.5-5.1) 10/11/17 07:40 Chloride 108 mmol/L (98-107) H 10/11/17 07:40 Carbon Dioxide 25 mmol/L (21-32) 10/11/17 07:40 Anion Gap 7 (8-16) L 10/11/17 07:40 BUN 6 mg/dL (7-18) L 10/11/17 07:40 Creatinine 0.6 mg/dL (0.55-1.02) 10/11/17 07:40 Creat Clearance w eGFR > 60 (>60) 10/10/17 06:30 POC Glucometer 130 UNITS (80-120) 10/11/17 06:47 Random Glucose 121 mg/dL (74-106) H 10/11/17 07:40 Lactic Acid 1.0 mmol/L (0.0-2.0) 10/09/17 21:45 Calcium 7.9 mg/dL (8.5-10.1) L 10/11/17 07:40 Phosphorus 3.0 mg/dL (2.5-4.9) 10/11/17 07:40 Magnesium 2.1 mg/dL (1.8-2.4) 10/11/17 07:40 Total Bilirubin 1.1 mg/dL (0.2-1.0) H D 10/10/17 06:30 AST 8 U/L (15-37) L 10/10/17 06:30 ALT 13 U/L (12-78) 10/10/17 06:30 Alkaline Phosphatase 85 U/L (45-117) 10/10/17 06:30 C-Reactive Protein 14.4 MG/DL (0.00-0.3) H 10/11/17 07:40 Total Protein 6.3 g/dl (6.4-8.2) L 10/10/17 06:30 Albumin 3.2 g/dl (3.4-5.0) L 10/10/17 06:30 Urine Color Yellow 10/09/17 14:30 Urine Appearance Slcloudy 10/09/17 14:30 Urine pH 5.0 (5.0-8.0) 10/09/17 14:30 Ur Specific [place] 1.021 (1.001-1.035) 10/09/17 14:30 Urine Protein Negative (NEGATIVE) 10/09/17 14:30 Urine Glucose (UA) 1+ (NEGATIVE) H 10/09/17 14:30 Urine Ketones Negative (NEGATIVE) 10/09/17 14:30 Urine Blood 1+ (NEGATIVE) H 10/09/17 14:30 Urine Nitrite Negative (NEGATIVE) 10/09/17 14:30 Urine Bilirubin Negative (<2.0 mg/dL) 10/09/17 14:30 Urine Urobilinogen Negative mg/dL (0.2-1.0) 10/09/17 14:30 Ur Leukocyte Esterase Negative (NEGATIVE) 10/09/17 14:30 Urine WBC (Auto) 2 /hpf (3-5) 10/09/17 14:30 Urine RBC (Auto) <1 /hpf (0-3) 10/09/17 14:30 Ur Epithelial Cells Rare /HPF (FEW) 10/09/17 14:30 Urine Mucus Rare 10/09/17 14:30 Blood Type O POSITIVE 10/09/17 14:30 Antibody Screen Negative 10/09/17 14:30 Problem List - Problems (1) Acute diverticulitis Code(s): K57.92 - DVTRCLI OF INTEST, PART UNSP, W/O PERF OR ABSCESS W/O BLEED (2) Diverticulosis Code(s): K57.90 - DVRTCLOS OF INTEST, PART UNSP, W/O PERF OR ABSCESS W/O BLEED (3) Left lower quadrant abdominal tenderness Code(s): R10.814 - LEFT LOWER QUADRANT ABDOMINAL TENDERNESS (4) Left lower quadrant pain Code(s): R10.32 - LEFT LOWER QUADRANT PAIN Assessment/Plan Continue current care, full liquid diet. Discussed with the patient
--- NOTE | 2017-10-11 12:14 | PN ---
Progress Note, Physician Chief Complaint: Ms Newton says she is feeling better. Able to walk and tolerate full liquids without pain. Had loose bowel movement this am. Still with LLQ abdominal pain when sitting. No cp or sob. - Current Medication List Current Medications: Active Medications Acetaminophen (Tylenol -) 650 mg PO Q6H PRN PRN Reason: PAIN LEVEL 1-5 Last Admin: 10/10/17 09:47 Dose: 650 mg Heparin Sodium (Porcine) (Heparin -) 5,000 unit SQ TID NILESH Last Admin: 10/11/17 06:47 Dose: 5,000 unit Sodium Chloride (Normal Saline -) 1,000 mls @ 100 mls/hr IV ASDIR NILESH Last Admin: 10/11/17 06:47 Dose: 100 mls/hr Metronidazole (Flagyl 500mg Premixed Ivpb -) 500 mg in 100 mls @ 100 mls/hr IVPB Q8H-IV NILESH Last Admin: 10/11/17 10:00 Dose: 100 mls/hr Ceftriaxone Sodium 2 gm/ (Dextrose) 100 mls @ 100 mls/hr IVPB DAILY NILESH PRN Reason: Protocol Last Admin: 10/11/17 08:59 Dose: 100 mls/hr Insulin Aspart (Novolog Vial Sliding Scale -) 1 vial SQ ACHS NILESH PRN Reason: Protocol Last Admin: 10/11/17 11:25 Dose: Not Given Morphine Sulfate (Morphine Sulfate) 2 mg IVPUSH Q4H PRN PRN Reason: PAIN LEVEL 6-10 Last Admin: 10/10/17 22:55 Dose: 2 mg - Objective Vital Signs: Vital Signs Temperature 37.1 C 10/11/17 08:56 Pulse Rate 86 10/11/17 08:56 Respiratory Rate 20 10/11/17 08:56 Blood Pressure 120/64 10/11/17 08:56 O2 Sat by Pulse Oximetry (%) 95 10/10/17 21:00 Constitutional: Yes: Well Nourished, No Distress, Calm Cardiovascular: Yes: Regular Rate and Rhythm. No: Gallop, Murmur, Rub Respiratory: Yes: Regular, CTA Bilaterally. No: Rales, Rhonchi, Wheezes Gastrointestinal: Yes: Normal Bowel Sounds, Soft, Tenderness (LLQ, improved). No: Distention Extremities: Yes: WNL Edema: No Labs: CBC, BMP 10/11/17 07:40 10/11/17 07:40 INR, PTT INR 1.05 (0.82-1.09) 10/09/17 14:30 Problem List - Problems (1) Acute diverticulitis Code(s): K57.92 - DVTRCLI OF INTEST, PART UNSP, W/O PERF OR ABSCESS W/O BLEED (2) Diabetes type 2, controlled Code(s): E11.9 - TYPE 2 DIABETES MELLITUS WITHOUT COMPLICATIONS Qualifiers: Diabetes mellitus fdc insulin use: without fdc use Diabetes mellitus complication status: without complication Qualified Code(s): E11.9 - Type 2 diabetes mellitus without complications Assessment/Plan (1) Acute diverticulitis Assessment/Plan: -appreciate GI and general surgery assistance -diet advanced to full liquid -continue rocephin and flagyl -possible further advancement of diet tomorrow -if tolerating, ? 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
[2017-10-11] MEDS: morphine SULFATE 4 MG/ML VIAL IVPUSH PRN ×2 (14:46→21:22)
[2017-10-12] MEDS: HEPARIN NA (PORCINE) 5,000 UNITS/ML 1ML VIAL SQ SCH ×3 (05:45→21:04)
[2017-10-12] MEDS: INSULIN SLIDING SCALE (NOVOLOG) 1 VIAL SQ SCH ×4 (06:02→21:05)
[2017-10-12 08:27] LABS: BASO % 0.8 % (0-2.0); EOS % 3.7 % (0-4.5); HEMATOCRIT 35.2 % (32.4-45.2); HEMOGLOBIN 12.1 GM/dL (10.7-15.3); LYMPH % 20.6 % (8-40); MCH 27.7 pg (25.7-33.7); MCHC 34.3 g/dl (32.0-36.0); MEAN CELL VOLUME 80.7 fl (80-96); MEAN PLT VOLUME 7.7 fl (7.5-11.1); MONO % 7.5 % (3.8-10.2); NEUT % 67.4 % (42.8-82.8); PLATELET COUNT 253 K/MM3 (134-434); RBC 4.36 M/mm3 (3.60-5.2); RDW 13.8 % (11.6-15.6); WHITE BLOOD COUNT 8.3 K/mm3 (4.0-10.0)
--- NOTE | 2017-10-12 08:53 | PN ---
Progress Note (short form) - Note Progress Note: Pt states that her LLQ pain is better, she is having more rectal pressure. No nause/emesis or increased abd pain with full liquids. Vital Signs Period Temp Pulse Resp BP Sys/Shelley Pulse Ox Last 24 Hr 98.4 F-99.2 F 73-86 20-20 116-147/64-80 96 GEN: Pt appears comfortable ABD: soft, non-distended, mile LLQ pain with palpation. No rebound or guarding. CBC, BMP 10/12/17 07:00 Problem List - Problems (1) Acute diverticulitis Assessment/Plan: Pt with acute diverticulitis, local inflammation and question of a small amount of extraluminal air. She has clinically improved with IV antibiotics treatment and bowel rest. The patient was started on a full liquid diet, would continue this diet and advance slowly after obtaining a repeat CT scan. D/w Dr. Worthy and recommend to repeat the CT scan of her abdomen tomorrow. Code(s): K57.92 - DVTRCLI OF INTEST, PART UNSP, W/O PERF OR ABSCESS W/O BLEED
[2017-10-12 08:59] LABS: ANION GAP 10 (8-16); BLOOD UREA NITROGEN 5 mg/dL (7-18); CALCIUM 8.7 mg/dL (8.5-10.1); CHLORIDE 108 mmol/L (98-107); CO2 24 mmol/L (21-32); CREATININE 0.6 mg/dL (0.55-1.02); GLUCOSE,RANDOM 142 mg/dL (74-106); PHOSPHOROUS 2.6 mg/dL (2.5-4.9); POTASSIUM 4.1 mmol/L (3.5-5.1); SODIUM 142 mmol/L (136-145)
[2017-10-12] MEDS ORDERED: DEXTROSE 5%-WATER 100 ML IVPB ONE (09:51)
[2017-10-12] MEDS: SODIUM CHLORIDE 1,000 ML IV SCH ×2 (10:04→21:30)
[2017-10-12] MEDS: CEFTRIAXONE 2 GM in DEXTROSE 5%-WATER 100 ML IVPB SCH (11:14)
[2017-10-12] MEDS ORDERED: ONDANSETRON 4 MG/2 ML VIAL IVPUSH PRN (11:42)
[2017-10-12] MEDS: morphine SULFATE 4 MG/ML VIAL IVPUSH PRN (14:41)
--- NOTE | 2017-10-12 15:04 | PN ---
Progress Note, Physician Chief Complaint: Ms Newton complains of nausea at 11am today. Abdominal pain improved, still with diarrhea. No cp or sob. - Current Medication List Current Medications: Active Medications Acetaminophen (Tylenol -) 650 mg PO Q6H PRN PRN Reason: PAIN LEVEL 1-5 Last Admin: 10/10/17 09:47 Dose: 650 mg Heparin Sodium (Porcine) (Heparin -) 5,000 unit SQ TID [facility] Last Admin: 10/12/17 14:16 Dose: Not Given Sodium Chloride (Normal Saline -) 1,000 mls @ 100 mls/hr IV ASDIR [facility] Last Admin: 10/12/17 10:04 Dose: 100 mls/hr Metronidazole (Flagyl 500mg Premixed Ivpb -) 500 mg in 100 mls @ 100 mls/hr IVPB Q8H-IV NILESH Last Admin: 10/12/17 10:05 Dose: 100 mls/hr Ceftriaxone Sodium 2 gm/ (Dextrose) 100 mls @ 100 mls/hr IVPB DAILY [facility] PRN Reason: Protocol Last Admin: 10/12/17 11:14 Dose: 100 mls/hr Insulin Aspart (Novolog Vial Sliding Scale -) 1 vial SQ ACHS NILESH PRN Reason: Protocol Last Admin: 10/12/17 11:52 Dose: Not Given Morphine Sulfate (Morphine Sulfate) 2 mg IVPUSH Q4H PRN PRN Reason: PAIN LEVEL 6-10 Last Admin: 10/12/17 14:41 Dose: 2 mg Ondansetron HCl (Zofran Injection) 4 mg IVPUSH Q6H PRN PRN Reason: NAUSEA - Objective Vital Signs: Vital Signs Temperature 36.6 C 10/12/17 14:26 Pulse Rate 69 10/12/17 14:26 Respiratory Rate 20 10/12/17 14:26 Blood Pressure 133/71 10/12/17 14:26 O2 Sat by Pulse Oximetry (%) 96 10/12/17 09:00 Constitutional: Yes: Well Nourished, No Distress, Calm Cardiovascular: Yes: Regular Rate and Rhythm. No: Gallop, Murmur, Rub Respiratory: Yes: Regular, CTA Bilaterally. No: Rales, Rhonchi, Wheezes Gastrointestinal: Yes: Normal Bowel Sounds, Soft, Tenderness. No: Distention Extremities: Yes: WNL Edema: No Labs: CBC, BMP 10/12/17 07:00 10/12/17 07:00 INR, PTT INR 1.05 (0.82-1.09) 10/09/17 14:30 Problem List - Problems (1) Acute diverticulitis Code(s): K57.92 - DVTRCLI OF INTEST, PART UNSP, W/O PERF OR ABSCESS W/O BLEED (2) Diabetes type 2, controlled Code(s): E11.9 - TYPE 2 DIABETES MELLITUS WITHOUT COMPLICATIONS Qualifiers: Diabetes mellitus snf insulin use: without extermination inspector use Diabetes mellitus complication status: without complication Qualified Code(s): E11.9 - Type 2 diabetes mellitus without complications Assessment/Plan (1) Acute diverticulitis Assessment/Plan: -appreciate GI and general surgery assistance -plan for CT scan tomorrow -will continue full liquid diet since one episode of nausea -continue rocephin and flagyl Code(s): K57.92 - DVTRCLI OF INTEST, PART UNSP, W/O PERF OR ABSCESS W/O BLEED (2) Diabetes type 2, controlled Assessment/Plan: -full liquid diet -monitor Code(s): E11.9 - TYPE 2 DIABETES MELLITUS WITHOUT COMPLICATIONS Qualifiers: Diabetes mellitus snf insulin use: without snf use Diabetes mellitus complication status: without complication Qualified Code(s): E11.9 - Type 2 diabetes mellitus without complications
--- NOTE | 2017-10-12 17:24 | PN ---
Progress Note, Physician History of Present Illness: LLQ tenderness improved, overall feels better, c/o rectal pressure. No melena, hematochezia - Current Medication List Current Medications: Active Medications Acetaminophen (Tylenol -) 650 mg PO Q6H PRN PRN Reason: PAIN LEVEL 1-5 Last Admin: 10/10/17 09:47 Dose: 650 mg Heparin Sodium (Porcine) (Heparin -) 5,000 unit SQ TID [facility] Last Admin: 10/12/17 14:16 Dose: Not Given Sodium Chloride (Normal Saline -) 1,000 mls @ 100 mls/hr IV ASDIR [facility] Last Admin: 10/12/17 10:04 Dose: 100 mls/hr Metronidazole (Flagyl 500mg Premixed Ivpb -) 500 mg in 100 mls @ 100 mls/hr IVPB Q8H-IV [facility] Last Admin: 10/12/17 10:05 Dose: 100 mls/hr Ceftriaxone Sodium 2 gm/ (Dextrose) 100 mls @ 100 mls/hr IVPB DAILY [facility] PRN Reason: Protocol Last Admin: 10/12/17 11:14 Dose: 100 mls/hr Insulin Aspart (Novolog Vial Sliding Scale -) 1 vial SQ ACHS [facility] PRN Reason: Protocol Last Admin: 10/12/17 17:14 Dose: Not Given Morphine Sulfate (Morphine Sulfate) 2 mg IVPUSH Q4H PRN PRN Reason: PAIN LEVEL 6-10 Last Admin: 10/12/17 14:41 Dose: 2 mg Ondansetron HCl (Zofran Injection) 4 mg IVPUSH Q6H PRN PRN Reason: NAUSEA - Objective Vital Signs: Vital Signs Temperature 97.9 F 10/12/17 14:26 Pulse Rate 69 10/12/17 14:26 Respiratory Rate 20 10/12/17 14:26 Blood Pressure 133/71 10/12/17 14:26 O2 Sat by Pulse Oximetry (%) 96 10/12/17 09:00 Constitutional: Yes: No Distress, Calm Gastrointestinal: Yes: Normal Bowel Sounds, Soft, Tenderness (llq) Neurological: Yes: Alert, Oriented Labs: CBC, BMP 10/12/17 07:00 10/12/17 07:00 INR, PTT INR 1.05 (0.82-1.09) 10/09/17 14:30 Laboratory Last Values WBC 8.3 K/mm3 (4.0-10.0) 10/12/17 07:00 RBC 4.36 M/mm3 (3.60-5.2) 10/12/17 07:00 Hgb 12.1 GM/dL (10.7-15.3) 10/12/17 07:00 Hct 35.2 % (32.4-45.2) 10/12/17 07:00 MCV 80.7 fl (80-96) 10/12/17 07:00 MCH 27.7 pg (25.7-33.7) 10/12/17 07:00 MCHC 34.3 g/dl (32.0-36.0) 10/12/17 07:00 RDW 13.8 % (11.6-15.6) 10/12/17 07:00 Plt Count 253 K/MM3 (134-434) 10/12/17 07:00 MPV 7.7 fl (7.5-11.1) 10/12/17 07:00 Neutrophils % 67.4 % (42.8-82.8) 10/12/17 07:00 Lymphocytes % 20.6 % (8-40) 10/12/17 07:00 Monocytes % 7.5 % (3.8-10.2) 10/12/17 07:00 Eosinophils % 3.7 % (0-4.5) D 10/12/17 07:00 Basophils % 0.8 % (0-2.0) 10/12/17 07:00 ESR 46 mm/hr (0-30) H 10/11/17 07:40 PT with INR 11.90 SEC (9.7-13.0) 10/09/17 14:30 INR 1.05 (0.82-1.09) 10/09/17 14:30 Sodium 142 mmol/L (136-145) 10/12/17 07:00 Potassium 4.1 mmol/L (3.5-5.1) 10/12/17 07:00 Chloride 108 mmol/L (98-107) H 10/12/17 07:00 Carbon Dioxide 24 mmol/L (21-32) 10/12/17 07:00 Anion Gap 10 (8-16) 10/12/17 07:00 BUN 5 mg/dL (7-18) L 10/12/17 07:00 Creatinine 0.6 mg/dL (0.55-1.02) 10/12/17 07:00 Creat Clearance w eGFR > 60 (>60) 10/10/17 06:30 POC Glucometer 151 UNITS (80-120) 10/12/17 11:48 Random Glucose 142 mg/dL (74-106) H 10/12/17 07:00 Lactic Acid 1.0 mmol/L (0.0-2.0) 10/09/17 21:45 Calcium 8.7 mg/dL (8.5-10.1) 10/12/17 07:00 Phosphorus 2.6 mg/dL (2.5-4.9) 10/12/17 07:00 Magnesium 2.0 mg/dL (1.8-2.4) 10/12/17 07:00 Total Bilirubin 1.1 mg/dL (0.2-1.0) H D 10/10/17 06:30 AST 8 U/L (15-37) L 10/10/17 06:30 ALT 13 U/L (12-78) 10/10/17 06:30 Alkaline Phosphatase 85 U/L (45-117) 10/10/17 06:30 C-Reactive Protein 14.4 MG/DL (0.00-0.3) H 10/11/17 07:40 Total Protein 6.3 g/dl (6.4-8.2) L 10/10/17 06:30 Albumin 3.2 g/dl (3.4-5.0) L 10/10/17 06:30 Urine Color Yellow 10/09/17 14:30 Urine Appearance Slcloudy 10/09/17 14:30 Urine pH 5.0 (5.0-8.0) 10/09/17 14:30 Ur Specific [place] 1.021 (1.001-1.035) 10/09/17 14:30 Urine Protein Negative (NEGATIVE) 10/09/17 14:30 Urine Glucose (UA) 1+ (NEGATIVE) H 10/09/17 14:30 Urine Ketones Negative (NEGATIVE) 10/09/17 14:30 Urine Blood 1+ (NEGATIVE) H 10/09/17 14:30 Urine Nitrite Negative (NEGATIVE) 10/09/17 14:30 Urine Bilirubin Negative (<2.0 mg/dL) 10/09/17 14:30 Urine Urobilinogen Negative mg/dL (0.2-1.0) 10/09/17 14:30 Ur Leukocyte Esterase Negative (NEGATIVE) 10/09/17 14:30 Urine WBC (Auto) 2 /hpf (3-5) 10/09/17 14:30 Urine RBC (Auto) <1 /hpf (0-3) 10/09/17 14:30 Ur Epithelial Cells Rare /HPF (FEW) 10/09/17 14:30 Urine Mucus Rare 10/09/17 14:30 Blood Type O POSITIVE 10/09/17 14:30 Antibody Screen Negative 10/09/17 14:30 Problem List - Problems (1) Acute diverticulitis Code(s): K57.92 - DVTRCLI OF INTEST, PART UNSP, W/O PERF OR ABSCESS W/O BLEED (2) Diverticulosis Code(s): K57.90 - DVRTCLOS OF INTEST, PART UNSP, W/O PERF OR ABSCESS W/O BLEED (3) Left lower quadrant abdominal tenderness Code(s): R10.814 - LEFT LOWER QUADRANT ABDOMINAL TENDERNESS (4) Left lower quadrant pain Code(s): R10.32 - LEFT LOWER QUADRANT PAIN Assessment/Plan Continue current care, full liquid diet. Discussed with the patient
[2017-10-12] MEDS ORDERED: INSULIN (NOVOLOG) ASPART 100 UNITS/ML 10ML VIAL ONE (21:03)
[2017-10-13] MEDS: INSULIN SLIDING SCALE (NOVOLOG) 1 VIAL SQ SCH ×4 (06:03→21:18)
[2017-10-13] MEDS: HEPARIN NA (PORCINE) 5,000 UNITS/ML 1ML VIAL SQ SCH ×3 (06:03→21:18)
[2017-10-13 08:54] LABS: BASO % 0.7 % (0-2.0); EOS % 3.2 % (0-4.5); HEMATOCRIT 37.4 % (32.4-45.2); HEMOGLOBIN 12.8 GM/dL (10.7-15.3); LYMPH % 19.6 % (8-40); MCH 27.2 pg (25.7-33.7); MCHC 34.2 g/dl (32.0-36.0); MEAN CELL VOLUME 79.5 fl (80-96); MEAN PLT VOLUME 7.6 fl (7.5-11.1); NEUT % 69.5 % (42.8-82.8); PLATELET COUNT 306 K/MM3 (134-434); RBC 4.71 M/mm3 (3.60-5.2); RDW 13.8 % (11.6-15.6); WHITE BLOOD COUNT 8.3 K/mm3 (4.0-10.0)
[2017-10-13] MEDS: SODIUM CHLORIDE 1,000 ML IV SCH ×2 (09:00→22:20)
[2017-10-13] MEDS ORDERED: DEXTROSE 5%-WATER 100 ML IVPB ONE (09:00)
[2017-10-13] MEDS: CEFTRIAXONE 2 GM in DEXTROSE 5%-WATER 100 ML IVPB SCH (09:24)
[2017-10-13 09:46] LABS: ANION GAP 6 (8-16); BLOOD UREA NITROGEN 5 mg/dL (7-18); CALCIUM 8.8 mg/dL (8.5-10.1); CHLORIDE 109 mmol/L (98-107); CO2 26 mmol/L (21-32); CREATININE 0.6 mg/dL (0.55-1.02); GLUCOSE,RANDOM 150 mg/dL (74-106); MAGNESIUM 1.8 mg/dL (1.8-2.4); PHOSPHOROUS 3.1 mg/dL (2.5-4.9); POTASSIUM 4.1 mmol/L (3.5-5.1); SODIUM 141 mmol/L (136-145)
[2017-10-13] MEDS: ACETAMINOPHEN 325 MG TABLET (FP) PO PRN ×2 (10:39→20:13)
--- NOTE | 2017-10-13 11:41 | PN ---
Progress Note (short form) - Note Progress Note: Admitted with acute diverticulitis and ? microperforation. Pt states that her LLQ pain has improved since admit to hospital. Tolerating clear liquid diet. Denies n/v or abd discomfort. Last Vital Signs Temp Pulse Resp BP Pulse Ox 98.4 F 67 20 126/71 96 10/13/17 07:00 10/13/17 07:00 10/12/17 18:00 10/13/17 07:00 10/12/17 20:17 CBC, BMP 10/13/17 08:00 10/13/17 08:00 PE GEN: Pt appears comfortable ABD: soft, non-distended, mild LLQ pain with palpation. No rebound or guarding. Problem List - Problems (1) Acute diverticulitis Assessment/Plan: f/u repeat ABD CT (comparative study) Cont OOB and ambulate Clear liquid diet Cont conservative management Code(s): K57.92 - DVTRCLI OF INTEST, PART UNSP, W/O PERF OR ABSCESS W/O BLEED
--- NOTE | 2017-10-13 12:20 | PN ---
Progress Note, Physician History of Present Illness: LLQ tenderness appears to resolve. - Current Medication List Current Medications: Active Medications Acetaminophen (Tylenol -) 650 mg PO Q6H PRN PRN Reason: PAIN LEVEL 1-5 Last Admin: 10/13/17 10:39 Dose: 650 mg Heparin Sodium (Porcine) (Heparin -) 5,000 unit SQ TID [facility] Last Admin: 10/13/17 06:03 Dose: Not Given Sodium Chloride (Normal Saline -) 1,000 mls @ 100 mls/hr IV [facility] Last Admin: 10/13/17 09:00 Dose: 100 mls/hr Metronidazole (Flagyl 500mg Premixed Ivpb -) 500 mg in 100 mls @ 100 mls/hr IVPB Q8H-IV [facility] Last Admin: 10/13/17 10:40 Dose: 100 mls/hr Ceftriaxone Sodium 2 gm/ (Dextrose) 100 mls @ 100 mls/hr IVPB DAILY [facility] PRN Reason: Protocol Last Admin: 10/13/17 09:24 Dose: 100 mls/hr Insulin Aspart (Novolog Vial Sliding Scale -) 1 vial SQ ACHS [facility] PRN Reason: Protocol Last Admin: 10/13/17 12:02 Dose: Not Given Ondansetron HCl (Zofran Injection) 4 mg IVPUSH Q6H PRN PRN Reason: NAUSEA - Objective Vital Signs: Vital Signs Temperature 98.4 F 10/13/17 07:00 Pulse Rate 67 10/13/17 07:00 Respiratory Rate 20 10/12/17 18:00 Blood Pressure 126/71 10/13/17 07:00 O2 Sat by Pulse Oximetry (%) 96 10/12/17 20:17 Constitutional: Yes: Well Nourished, No Distress, Calm Gastrointestinal: Yes: Soft. No: Tenderness Labs: CBC, BMP 10/13/17 08:00 10/13/17 08:00 INR, PTT INR 1.05 (0.82-1.09) 10/09/17 14:30 Problem List - Problems (1) Acute diverticulitis Code(s): K57.92 - DVTRCLI OF INTEST, PART UNSP, W/O PERF OR ABSCESS W/O BLEED (2) Diverticulosis Code(s): K57.90 - DVRTCLOS OF INTEST, PART UNSP, W/O PERF OR ABSCESS W/O BLEED (3) Left lower quadrant abdominal tenderness Code(s): R10.814 - LEFT LOWER QUADRANT ABDOMINAL TENDERNESS (4) Left lower quadrant pain Code(s): R10.32 - LEFT LOWER QUADRANT PAIN Assessment/Plan Continue current care, Advance diet, if okay with surgery. Follow repeat CT. Discussed with the patient
--- NOTE | 2017-10-13 12:40 | PN ---
Progress Note (short form) - Note Progress Note: Attending Surgeon No c/o VSS AF abdo-benign WBC-wnl IMP: improved PLAN: Repeat CT pending; further plan pending CT results. Shahid Worthy MD FACS
--- NOTE | 2017-10-13 16:37 | PN ---
Progress Note, Physician Chief Complaint: Ms Newton says she is feeling much better today. Pain is much improved. No cp or sob. - Current Medication List Current Medications: Active Medications Acetaminophen (Tylenol -) 650 mg PO Q6H PRN PRN Reason: PAIN LEVEL 1-5 Last Admin: 10/13/17 10:39 Dose: 650 mg Heparin Sodium (Porcine) (Heparin -) 5,000 unit SQ TID [facility] Last Admin: 10/13/17 14:20 Dose: Not Given Sodium Chloride (Normal Saline -) 1,000 mls @ 100 mls/hr IV [facility] Last Admin: 10/13/17 09:00 Dose: 100 mls/hr Metronidazole (Flagyl 500mg Premixed Ivpb -) 500 mg in 100 mls @ 100 mls/hr IVPB Q8H-IV [facility] Last Admin: 10/13/17 10:40 Dose: 100 mls/hr Ceftriaxone Sodium 2 gm/ (Dextrose) 100 mls @ 100 mls/hr IVPB DAILY [facility] PRN Reason: Protocol Last Admin: 10/13/17 09:24 Dose: 100 mls/hr Insulin Aspart (Novolog Vial Sliding Scale -) 1 vial SQ ACHS [facility] PRN Reason: Protocol Last Admin: 10/13/17 12:02 Dose: Not Given Ondansetron HCl (Zofran Injection) 4 mg IVPUSH Q6H PRN PRN Reason: NAUSEA - Objective Vital Signs: Vital Signs Temperature 36.7 C 10/13/17 14:00 Pulse Rate 67 10/13/17 07:00 Respiratory Rate 20 10/12/17 18:00 Blood Pressure 126/71 10/13/17 07:00 O2 Sat by Pulse Oximetry (%) 96 10/13/17 09:00 Constitutional: Yes: Well Nourished, No Distress, Calm Cardiovascular: Yes: Regular Rate and Rhythm. No: Gallop, Murmur, Rub Respiratory: Yes: Regular, CTA Bilaterally. No: Rales, Rhonchi, Wheezes Gastrointestinal: Yes: Normal Bowel Sounds, Soft, Tenderness (minimal). No: Distention Extremities: Yes: WNL Edema: No Labs: CBC, BMP 10/13/17 08:00 10/13/17 08:00 INR, PTT INR 1.05 (0.82-1.09) 04/23/18 14:30 Problem List - Problems (1) Acute diverticulitis Code(s): K57.92 - DVTRCLI OF INTEST, PART UNSP, W/O PERF OR ABSCESS W/O BLEED (2) Diabetes type 2, controlled Code(s): E11.9 - TYPE 2 DIABETES MELLITUS WITHOUT COMPLICATIONS Qualifiers: Diabetes mellitus long-term insulin use: without [employer] use Diabetes mellitus complication status: without complication Qualified Code(s): E11.9 - Type 2 diabetes mellitus without complications Assessment/Plan (1) Acute diverticulitis Assessment/Plan: -CT scan reviewed -both patient and CT improved -will change diet to low fiber -if tolerates can discharge in am -continue rocephin and flagyl, change to oral on discharge Code(s): K57.92 - DVTRCLI OF INTEST, PART UNSP, W/O PERF OR ABSCESS W/O BLEED (2) Diabetes type 2, controlled Assessment/Plan: -low fiber diet -monitor Code(s): E11.9 - TYPE 2 DIABETES MELLITUS WITHOUT COMPLICATIONS Qualifiers: Diabetes mellitus [employer] insulin use: without [employer] use Diabetes mellitus complication status: without complication Qualified Code(s): E11.9 - Type 2 diabetes mellitus without complications
[2017-10-14] MEDS: HEPARIN NA (PORCINE) 5,000 UNITS/ML 1ML VIAL SQ SCH (05:59)
[2017-10-14] MEDS: INSULIN SLIDING SCALE (NOVOLOG) 1 VIAL SQ SCH ×2 (06:00→11:46)
--- NOTE | 2017-10-14 08:17 | DS ---
Physical Examination Vital Signs: Vital Signs Temperature 98.6 F 10/14/17 06:55 Pulse Rate 67 10/14/17 06:55 Respiratory Rate 20 10/14/17 06:55 Blood Pressure 126/64 10/14/17 06:55 O2 Sat by Pulse Oximetry (%) 96 10/13/17 21:00 Findings/Remarks: Physical Exam: General: NAD, A&O x3 Abd: Soft, non-tender, non-distended. Normoactive bowel sounds Discharge Summary Reason For Visit: DIVERTICULITIS Current Active Problems Acute diverticulitis (Acute) Diabetes type 2, controlled (Acute) Diverticulitis (Acute) Diverticulosis (Acute) Left lower quadrant abdominal tenderness (Acute) Left lower quadrant pain (Acute) Hospital Course: Patient tolerating diet well. No complaints at this time. Discharge with abx and follow-up with pcp, surgery, and GI Condition: Improved - Instructions Diet, Activity, Other Instructions: Please return to the ED with new, persistent, or worsening symptoms. Please follow-up with providers as indicated. Complete the full course of antibiotics (Ciprofloxacin and Flagyl). Referrals: Balta Curry MD [Primary Care Provider] - (Please follow-up with your primary care provider as scheduled on 10/17) Ford Savage MD [Staff Physician] - (Please follow-up with Dr. Savage ( gastrointestinal doctor) within 1 week for further management of your diverticulitis) Shahid Worthy MD [Staff Physician] - 1 Week Disposition: HOME - Home Medications Comprehensive Discharge Medication List: Ambulatory Orders metFORMIN HCL [Glucophage -] 500 mg PO DAILY 11/22/12 Liraglutide [Victoza -] 1.8 mg SQ DAILY@0700 10/09/17 Ciprofloxacin [Cipro -] 500 mg PO Q12H #8 tablet 10/14/17 metroNIDAZOLE [Flagyl -] 500 mg PO Q8H #12 tablet 10/14/17
[2017-10-14 08:20] LABS: EOS % 4.1 % (0-4.5); HEMATOCRIT 36.6 % (32.4-45.2); HEMOGLOBIN 12.8 GM/dL (10.7-15.3); LYMPH % 24.3 % (8-40); MCH 27.8 pg (25.7-33.7); MEAN CELL VOLUME 79.4 fl (80-96); MEAN PLT VOLUME 7.3 fl (7.5-11.1); MONO % 8.1 % (3.8-10.2); NEUT % 62.5 % (42.8-82.8); PLATELET COUNT 311 K/MM3 (134-434); RBC 4.61 M/mm3 (3.60-5.2); RDW 13.9 % (11.6-15.6); WHITE BLOOD COUNT 7.1 K/mm3 (4.0-10.0)
[2017-10-14] MEDS ORDERED: DEXTROSE 5%-WATER 100 ML IVPB ONE (08:42)
[2017-10-14 08:52] LABS: ANION GAP 6 (8-16); BLOOD UREA NITROGEN 5 mg/dL (7-18); CHLORIDE 108 mmol/L (98-107); CO2 29 mmol/L (21-32); CREATININE 0.7 mg/dL (0.55-1.02); GLUCOSE,RANDOM 154 mg/dL (74-106); MAGNESIUM 1.9 mg/dL (1.8-2.4); PHOSPHOROUS 3.6 mg/dL (2.5-4.9); POTASSIUM 4.1 mmol/L (3.5-5.1); SODIUM 143 mmol/L (136-145)
[2017-10-14 09:26] VITALS: BP 145/67
[2017-10-14] MEDS: CEFTRIAXONE 2 GM in DEXTROSE 5%-WATER 100 ML IVPB SCH (09:26)
[2017-10-14 09:52] VITALS: PULSE 68; TEMP 97.6
== END 2017-10-14 13:32 | disposition home or self-care (01) | DRG 392 ==
LOC: JER 12:34 → JERBED 17:33 → J6S 20:40
PROVIDERS: ADMIT Internal Medicine; ATTEND Registered Nurse
DX: K57.92 Diverticulitis of intestine, part unspecified, without perforation or abscess without bleeding (principal); E11.9 Type 2 diabetes mellitus without complications; R10.32 Left lower quadrant pain; N20.0 Calculus of kidney; D64.9 Anemia, unspecified; D25.9 Leiomyoma of uterus, unspecified
CPT/HCPCS: 36415; 74177-TC; 80048; 80053; 81003; 81015; 82962; 83605; 83735; 84100; 85025; 85610; 85651; 86140; 86850; 86900; 86901; 87040; 87086; 97116-GP; 97161-GP; 99284-25; J1644; J7030

== ENCOUNTER 2020-12-13 13:31 | Emergency (ER) | payer BC, OTHER ==
[2020-12-13 13:38] VITALS: BP 118/75; PULSE 80; TEMP 97; BMI 32.9
[2020-12-13] MEDS ORDERED: DIPHTH,PERTUSS(ACELL),TET 0.5 ML DISP.SYRIN IM ONE ×2 (14:02→14:05)
== END 2020-12-13 14:35 | disposition home or self-care (01) ==
LOC: JERFT 13:31
PROC: 0HQJXZZ Repair Left Upper Leg Skin, External Approach (ICD-10-PCS; principal; 2020-12-13)
PROC: 3E0234Z Introduction of Serum, Toxoid and Vaccine into Muscle, Percutaneous Approach (ICD-10-PCS; 2020-12-13)
DX: S81.012A Laceration without foreign body, left knee, initial encounter (principal)
CPT/HCPCS: 12002-25; 90471; 90715; 99284-25

== ENCOUNTER 2021-11-05 18:32 | Emergency (ER) | payer OTHER ==
[2021-11-05 18:40] VITALS: BP 144/97; PULSE 80; TEMP 97.7; BMI 32.3
[2021-11-05] MEDS ORDERED: SODIUM CHLORIDE 0.9% 500 ML INFUS.BAG IV ONE (20:11)
[2021-11-05 21:20] LABS: BASO % 0.6 % (0-2.0); EOS % 1.8 % (0-4.5); HEMATOCRIT 41.3 % (32.4-45.2); HEMOGLOBIN 14.2 GM/dL (10.7-15.3); MCH 27.4 pg (25.7-33.7); MCHC 34.3 g/dl (32.0-36.0); MEAN CELL VOLUME 79.8 fl (80-96); MEAN PLT VOLUME 7.4 fl (7.5-11.1); MONO % 6.8 % (3.8-10.2); NEUT % 58.8 % (42.8-82.8); PLATELET COUNT 231 10^3/uL (134-434); RBC 5.17 M/mm3 (3.60-5.2); RDW 13.9 % (11.6-15.6); WHITE BLOOD COUNT 8.5 K/mm3 (4.0-10.0)
[2021-11-05 21:25] LABS: EPI CELLS 24 /uL (0-25.1); HYALINE CASTS 0 /uL (0-3.1); PH,URINE 5.5 (5.0-8.0); URINE APPEARANCE CLEAR; URINE BACTERIA 326 /uL (0-1359); URINE BILIRUBIN NEGATIVE (NEGATIVE); URINE COLOR YELLOW; URINE GLUCOSE (UA) NEGATIVE (NEGATIVE); URINE KETONE TRACE (NEGATIVE); URINE LEUK ESTERASE TRACE (NEGATIVE); URINE NITRITE NEGATIVE (NEGATIVE); URINE PROTEIN NEGATIVE (NEGATIVE); URINE RBC 3 /uL (0-23.9); URINE UROBILINOGEN 0.2 mg/dL (0.2-1.0); URINE WBC 22 /uL (0-25.8)
[2021-11-05 21:28] LABS: INR 1.03 (0.83-1.09); PROTHROMBIN TIME (PATIENT) 11.8 SEC (9.7-13.0)
[2021-11-05 21:30] LABS: ACTIVATED PTT 30.8 SECONDS (25.2-36.5)
[2021-11-05 21:53] LABS: CALCIUM 9.4 mg/dL (8.5-10.1)
[2021-11-05 21:54] LABS: ALBUMIN 3.8 g/dl (3.4-5.0); BLOOD UREA NITROGEN 7.5 mg/dL (7-18)
[2021-11-05 21:57] LABS: CREATININE 0.6 mg/dL (0.55-1.3)
[2021-11-05 21:58] LABS: TOT PROT 7.3 g/dl (6.4-8.2)
[2021-11-05 21:59] LABS: BILIRUBIN,TOTAL 1.1 mg/dL (0.2-1)
[2021-11-05] MEDS ORDERED: CEPHALEXIN MONOHYDRATE 500 MG CAPSULE (UD) PO ONE (23:38)
[2021-11-05] MEDS ORDERED: CEPHALEXIN MONOHYDRATE 500 MG CAPSULE (UD) ONE (23:56)
[2021-11-07 14:07] LABS: SARS-CoV-2 NAA Not Detected (Not Detected)
== END 2021-11-06 00:11 | disposition home or self-care (01) ==
LOC: JER 18:32
DX: R73.9 Hyperglycemia, unspecified (principal)
CPT/HCPCS: 36415; 71046-TC-FY; 80053; 81003; 82962; 83735; 84484; 85025; 85610; 85730; 87086; 93005; 93010; 99285-25; C9803-CS; U0003; U0005

== ENCOUNTER 2022-01-07 18:26 | Emergency (ER) | payer OTHER ==
[2022-01-07 18:39] VITALS: TEMP 98; BMI 32.3
[2022-01-07] MEDS ORDERED: ACETAMINOPHEN 1000 MG/100 ML BAG IVPB ONE (20:09)
[2022-01-07] MEDS ORDERED: ONDANSETRON 4 MG/2 ML VIAL IVPUSH ONE (20:10)
[2022-01-07] MEDS ORDERED: ONDANSETRON 4 MG/2 ML VIAL ONE (20:56)
[2022-01-07] MEDS ORDERED: ACETAMINOPHEN INJECTION 100 ML IVPB ONE (20:56)
[2022-01-07 21:22] LABS: BASO % 0.7 % (0-2.0); EOS % 3.3 % (0-4.5); HEMATOCRIT 38.3 % (32.4-45.2); HEMOGLOBIN 13.1 GM/dL (10.7-15.3); LYMPH % 36.3 % (8-40); MCH 27.3 pg (25.7-33.7); MCHC 34.1 g/dl (32.0-36.0); MEAN CELL VOLUME 80.1 fl (80-96); MEAN PLT VOLUME 7.3 fl (7.5-11.1); MONO % 6.9 % (3.8-10.2); NEUT % 52.8 % (42.8-82.8); PLATELET COUNT 260 10^3/uL (134-434); RBC 4.78 M/mm3 (3.60-5.2); RDW 13.7 % (11.6-15.6); WHITE BLOOD COUNT 8.3 K/mm3 (4.0-10.0)
[2022-01-07 21:44] LABS: ALBUMIN 3.7 g/dl (3.4-5.0); BLOOD UREA NITROGEN 10.3 mg/dL (7-18)
[2022-01-07 21:47] LABS: CREATININE 0.6 mg/dL (0.55-1.3)
[2022-01-07 21:48] LABS: BILIRUBIN,TOTAL 0.6 mg/dL (0.2-1); TOT PROT 6.9 g/dl (6.4-8.2)
[2022-01-07] MEDS ORDERED: KETOROLAC TROMETHAMINE 15 MG/ML VIAL IVPUSH ONE (23:05)
[2022-01-07] MEDS ORDERED: KETOROLAC TROMETHAMINE 15 MG/ML VIAL ONE (23:10)
[2022-01-07 23:16] LABS: EPI CELLS 8 /uL (0-25.1); HYALINE CASTS 18 /uL (0-3.1); URINE APPEARANCE CLEAR; URINE BACTERIA >9,000 /uL (0-1359); URINE BILIRUBIN NEGATIVE (NEGATIVE); URINE COLOR YELLOW; URINE GLUCOSE (UA) NEGATIVE (NEGATIVE); URINE KETONE NEGATIVE (NEGATIVE); URINE LEUK ESTERASE 2+ (NEGATIVE); URINE NITRITE NEGATIVE (NEGATIVE); URINE PROTEIN NEGATIVE (NEGATIVE); URINE RBC 0 /uL (0-23.9); URINE UROBILINOGEN 0.2 mg/dL (0.2-1.0); URINE WBC 5 /uL (0-25.8)
[2022-01-07] MEDS ORDERED: AMOX TR/POT CLAV 875MG/125MG TABLETS (FP) PO ONE (23:33)
[2022-01-07] MEDS ORDERED: AMOX TR/POT CLAV 875MG/125MG TABLETS (FP) ONE (23:37)
[2022-01-07 23:47] VITALS: BP 127/78; PULSE 71; RESP 16
== END 2022-01-07 23:58 | disposition home or self-care (01) ==
LOC: JER 18:26
PROC: 3E0333Z Introduction of Anti-inflammatory into Peripheral Vein, Percutaneous Approach (ICD-10-PCS; principal; 2022-01-07)
PROC: 3E0333Z Introduction of Anti-inflammatory into Peripheral Vein, Percutaneous Approach (ICD-10-PCS; 2022-01-07)
PROC: 3E033GC Introduction of Other Therapeutic Substance into Peripheral Vein, Percutaneous Approach (ICD-10-PCS; 2022-01-07)
DX: N39.0 Urinary tract infection, site not specified (principal); R10.32 Left lower quadrant pain
CPT/HCPCS: 36415; 80053; 81003; 83690; 85025; 87086; 87186; 99284-25

== ENCOUNTER 2022-01-09 09:49 | Emergency (ER) | payer OTHER ==
[2022-01-09 10:11] VITALS: TEMP 97.9; BMI 32.3
[2022-01-09] MEDS ORDERED: ACETAMINOPHEN 1000 MG/100 ML BAG IVPB ONE (10:49)
[2022-01-09] MEDS ORDERED: LACTATED RINGERS SOLUTION 1000 ML INFUS.BAG IV ONE (10:50)
[2022-01-09 11:01] LABS: BASO % 0.4 % (0-2.0); EOS % 2.1 % (0-4.5); HEMATOCRIT 39.4 % (32.4-45.2); HEMOGLOBIN 13.6 GM/dL (10.7-15.3); LYMPH % 26.4 % (8-40); MCH 27.3 pg (25.7-33.7); MCHC 34.4 g/dl (32.0-36.0); MEAN CELL VOLUME 79.4 fl (80-96); MEAN PLT VOLUME 7.2 fl (7.5-11.1); MONO % 6.3 % (3.8-10.2); NEUT % 64.8 % (42.8-82.8); PLATELET COUNT 268 10^3/uL (134-434); RBC 4.97 M/mm3 (3.60-5.2); RDW 13.9 % (11.6-15.6); WHITE BLOOD COUNT 7.7 K/mm3 (4.0-10.0)
[2022-01-09 11:06] LABS: INR 1.03 (0.83-1.09); PROTHROMBIN TIME (PATIENT) 11.8 SEC (9.7-13.0)
[2022-01-09] MEDS ORDERED: ACETAMINOPHEN INJECTION 100 ML IVPB ONE (11:08)
[2022-01-09 11:21] LABS: ALBUMIN 3.7 g/dl (3.4-5.0); CALCIUM 9.4 mg/dL (8.5-10.1)
[2022-01-09 11:22] LABS: BLOOD UREA NITROGEN 6.8 mg/dL (7-18)
[2022-01-09 11:24] LABS: CREATININE 0.7 mg/dL (0.55-1.3)
[2022-01-09 11:26] LABS: BILIRUBIN,TOTAL 0.9 mg/dL (0.2-1); TOT PROT 7.2 g/dl (6.4-8.2)
[2022-01-09 11:33] LABS: EPI CELLS 14 /uL (0-25.1); HYALINE CASTS 0 /uL (0-3.1); URINE APPEARANCE CLEAR; URINE BACTERIA 4 /uL (0-1359); URINE BILIRUBIN NEGATIVE (NEGATIVE); URINE COLOR YELLOW; URINE GLUCOSE (UA) NEGATIVE (NEGATIVE); URINE KETONE NEGATIVE (NEGATIVE); URINE LEUK ESTERASE TRACE (NEGATIVE); URINE NITRITE NEGATIVE (NEGATIVE); URINE PROTEIN NEGATIVE (NEGATIVE); URINE RBC 3 /uL (0-23.9); URINE UROBILINOGEN 0.2 mg/dL (0.2-1.0); URINE WBC 8 /uL (0-25.8)
[2022-01-09] MEDS ORDERED: ONDANSETRON 4 MG/2 ML VIAL IVPUSH ONE (12:57)
[2022-01-09] MEDS ORDERED: ONDANSETRON 4 MG/2 ML VIAL ONE (13:05)
[2022-01-09 14:02] VITALS: BP 129/69; PULSE 68; RESP 20
== END 2022-01-09 14:11 | disposition home or self-care (01) ==
LOC: JER 09:49
PROC: 3E0333Z Introduction of Anti-inflammatory into Peripheral Vein, Percutaneous Approach (ICD-10-PCS; principal; 2022-01-09)
PROC: 3E033GC Introduction of Other Therapeutic Substance into Peripheral Vein, Percutaneous Approach (ICD-10-PCS; 2022-01-09)
DX: K52.9 Noninfective gastroenteritis and colitis, unspecified (principal)
CPT/HCPCS: 36415; 74176-TC; 80053; 81003; 85025; 85610; 87086; 93005; 93010; 99285-25

== ENCOUNTER 2022-01-22 08:39 | Emergency (ER) | payer OTHER ==
[2022-01-22 09:00] VITALS: BP 97/64; PULSE 109; RESP 16; TEMP 98.8; BMI 32.3
== END 2022-01-22 10:17 | disposition home or self-care (01) ==
LOC: JER 08:39
DX: U07.1 COVID-19 (principal)
CPT/HCPCS: 99283-25; C9803-CS; U0003; U0005

== ENCOUNTER 2022-03-17 04:29 | Day surgery (SDC) | payer OTHER ==
[2022-03-14 12:20] VITALS: BMI 31.5
[2022-03-17] MEDS ORDERED: LACTATED RINGERS SOLUTION 1,000 ML IV SCH (07:30)
[2022-03-17 13:13] VITALS: TEMP 98.2
[2022-03-17 13:43] VITALS: BP 138/78; PULSE 72; RESP 23
== END 2022-03-17 14:03 | disposition home or self-care (01) ==
LOC: JASU-ENDO 04:29
PROVIDERS: ATTEND Internal Medicine Gastroenterology
PROC: 0DJD8ZZ Inspection of Lower Intestinal Tract, Via Natural or Artificial Opening Endoscopic (ICD-10-PCS; principal; 2022-03-17 13:00)
DX: Z12.11 Encounter for screening for malignant neoplasm of colon (principal); Z80.0 Family history of malignant neoplasm of digestive organs; Z53.8 Procedure and treatment not carried out for other reasons; K63.89 Other specified diseases of intestine

== ENCOUNTER 2022-03-17 18:05 | Inpatient (IN) | payer OTHER ==
[2022-03-17 18:17] VITALS: BMI 31.5
[2022-03-17] MEDS ORDERED: ONDANSETRON 4 MG/2 ML VIAL IVPUSH ONE (18:38)
[2022-03-17] MEDS ORDERED: morphine CARPU-JECT 4 MG/1 ML DISP.SYRIN IVPUSH ONE (18:43)
[2022-03-17] MEDS ORDERED: SODIUM CHLORIDE 0.9% 500 ML INFUS.BAG IV ONE (18:51)
[2022-03-17] MEDS ORDERED: LACTATED RINGERS SOLUTION 1000 ML INFUS.BAG IV ONE (18:52)
[2022-03-17] MEDS ORDERED: morphine SULFATE 4 MG/ML VIAL ONE (19:09)
[2022-03-17] MEDS ORDERED: ONDANSETRON 4 MG/2 ML VIAL ONE (19:10)
[2022-03-17 20:01] LABS: BASO % 0.3 % (0-2.0); EOS % 0.4 % (0-4.5); HEMATOCRIT 44.7 % (32.4-45.2); HEMOGLOBIN 14.6 GM/dL (10.7-15.3); LYMPH % 13.1 % (8-40); MCH 26.5 pg (25.7-33.7); MCHC 32.6 g/dl (32.0-36.0); MEAN CELL VOLUME 81.3 fl (80-96); MONO % 6.4 % (3.8-10.2); NEUT % 79.8 % (42.8-82.8); PLATELET COUNT 331 10^3/uL (134-434); RDW 14.3 % (11.6-15.6); WHITE BLOOD COUNT 16.3 K/mm3 (4.0-10.0)
[2022-03-17 20:10] LABS: INR 1.05 (0.83-1.09); PROTHROMBIN TIME (PATIENT) 12.1 SEC (9.7-13.0)
[2022-03-17 20:12] LABS: ACTIVATED PTT 26.5 SECONDS (25.2-36.5)
[2022-03-17] MEDS ORDERED: PIPERACILLIN/TAZOB 4.5 GM 4.5 GM in DEXTROSE 5%-WATER 100 ML IVPB ONE (20:14)
[2022-03-17 20:18] LABS: BLOOD UREA NITROGEN 9.3 mg/dL (7-18)
[2022-03-17 20:19] LABS: ALBUMIN 0.2 g/dl (3.4-5.0)
[2022-03-17 20:21] LABS: LACTIC ACID 2.3 mmol/L (0.4-2.0)
[2022-03-17 20:22] LABS: CREATININE 0.8 mg/dL (0.55-1.3)
[2022-03-17] MEDS ORDERED: PIPERACILLIN/TAZOB 4.5 GM 4.5 GM/100 ML BAG IVPB ONE (20:22)
[2022-03-17 20:23] LABS: BILIRUBIN,TOTAL 1.1 mg/dL (0.2-1); TOT PROT 7.8 g/dl (6.4-8.2)
[2022-03-17] MEDS ORDERED: LACTATED RINGERS SOLUTION 1,000 ML/1,000 ML INFUS.BAG IV SCH ×2 (20:30→23:24)
[2022-03-17 20:52] LABS: CALCIUM 9.8 mg/dL (8.5-10.1)
[2022-03-17] MEDS ORDERED: MIDAZOLAM HCL 2 MG/2 ML SINGLE DOSE VIAL ONE (22:47)
[2022-03-17] MEDS ORDERED: PROPOFOL 40 ML ONE (22:48)
[2022-03-17] MEDS ORDERED: ROCURONIUM BROMIDE 50 MG/5 ML SYRINGE ONE (22:51)
[2022-03-17] MEDS ORDERED: LIDOCAINE HCL 2% 100 MG/5 ML DISP.SYRIN ONE (22:52)
[2022-03-17] MEDS ORDERED: DESFLURANE GAS 240 ML BOTTLE IH ONE (22:55)
[2022-03-17] MEDS ORDERED: SEVOFLURANE 250 ML BTL ONE (22:55)
[2022-03-17] MEDS ORDERED: KETAMINE HCL 200 MG/20 ML VIAL ONE (23:02)
[2022-03-17] MEDS ORDERED: INSULIN REGULAR HUMAN 100 UNITS/ML *VIAL IVPUSH ONE ×2 (23:10)
[2022-03-17] MEDS ORDERED: ACETAMINOPHEN 1000 MG/100 ML BAG IVPB PRN (23:13)
[2022-03-18] MEDS ORDERED: PHENYLEPHRINE HCL 10 MG/1 ML SINGLE DOSE VIAL ONE (00:36)
[2022-03-18] MEDS ORDERED: HYDROmorphone HCl 2 MG/ML VIAL ONE (00:36)
[2022-03-18] MEDS ORDERED: ROCURONIUM BROMIDE 50 MG/5 ML SYRINGE ONE (00:44)
[2022-03-18] MEDS ORDERED: ONDANSETRON 4 MG/2 ML VIAL ONE ×2 (01:46→01:59)
[2022-03-18] MEDS ORDERED: DEXAMETHASONE SOD PHOSPHATE 4 MG/1 ML VIAL ONE (01:46)
[2022-03-18] MEDS ORDERED: GLYCOPYRROLATE 0.2 MG/1 ML VIAL ONE (01:46)
[2022-03-18] MEDS ORDERED: NEOSTIGMINE METHYLSULFATE 0.5 MG/ML - 10 ML MDV ONE (01:46)
[2022-03-18] MEDS ORDERED: ESMOLOL HCL 100,000 MCG/10 ML VIAL ONE (02:02)
[2022-03-18] MEDS ORDERED: ACETAMINOPHEN 1000 MG/100 ML BAG IVPB PRN (02:04)
[2022-03-18] MEDS ORDERED: SUGAMMADEX SODIUM 200 MG/2 ML VIAL ONE (02:07)
[2022-03-18] MEDS ORDERED: ONDANSETRON 4 MG/2 ML VIAL IVPUSH PRN (02:44)
[2022-03-18] MEDS ORDERED: LACTATED RINGERS SOLUTION 1,000 ML IV SCH (02:45)
[2022-03-18] MEDS ORDERED: PIPERACILLIN/TAZOB 4.5 GM 4.5 GM in DEXTROSE 5%-WATER 100 ML IVPB ONE (03:01)
[2022-03-18] MEDS ORDERED: IBUPROFEN 600 MG TABLET (FP) PO SCH (06:00)
[2022-03-18] MEDS ORDERED: TRIMETHOBENZAMIDE HCL 200MG/2ML INJ IM PRN (06:09)
[2022-03-18] MEDS: SODIUM CHLORIDE 1,000 ML IV SCH ×2 (06:13→14:57)
[2022-03-18 06:39] LABS: HEMATOCRIT 37.5 % (32.4-45.2); HEMOGLOBIN 12.4 GM/dL (10.7-15.3); MCH 26.4 pg (25.7-33.7); MCHC 33.1 g/dl (32.0-36.0); MEAN CELL VOLUME 79.9 fl (80-96); MEAN PLT VOLUME 8.2 fl (7.5-11.1); PLATELET COUNT 267 10^3/uL (134-434); RDW 14.1 % (11.6-15.6); WHITE BLOOD COUNT 19.5 K/mm3 (4.0-10.0)
[2022-03-18 06:59] LABS: CALCIUM 8.8 mg/dL (8.5-10.1)
[2022-03-18 07:00] LABS: BLOOD UREA NITROGEN 6.5 mg/dL (7-18); MAGNESIUM 1.6 mg/dL (1.8-2.4)
[2022-03-18 07:03] LABS: CREATININE 0.7 mg/dL (0.55-1.3); PHOSPHOROUS 3.2 mg/dL (2.5-4.9)
[2022-03-18 07:04] LABS: TOT PROT 6.2 g/dl (6.4-8.2)
[2022-03-18] MEDS: morphine SULFATE 4 MG/ML VIAL IVPUSH PRN ×3 (07:11→18:49)
[2022-03-18 07:22] LABS: ALBUMIN 3.1 g/dl (3.4-5.0)
[2022-03-18 09:13] LABS: ANISOCYTOSIS 0; HELMET CELLS 0; HOWELL-JOLLY BODIES 0; MACROCYTOSIS 0; OVALOCYTE 0; ROULEAU 0; SICKELED CELLS 0; TARGET CELLS 0; TEAR DROP CELLS 0; TOXIC GRANULATION 0
[2022-03-18] MEDS: PIPERACILLIN/TAZOB 3.375 GM 3.375 GM in DEXTROSE 5%-WATER - 50 ML IVPB SCH ×3 (09:14→21:56)
[2022-03-18] MEDS: ENOXAPARIN NA (PORCINE) 40 MG/0.4 ML DISP.SYRIN SQ SCH (09:23)
[2022-03-18] MEDS ORDERED: INSULIN SLIDING SCALE (NOVOLOG) 1 VIAL SQ SCH (14:00)
[2022-03-18] MEDS: INSULIN SLIDING SCALE (NOVOLOG) 1 VIAL SQ SCH ×2 (14:57→16:37)
[2022-03-18] MEDS ORDERED: MAGNESIUM SULF 50% (8.12 MEQ/2 ML-1 GM VIAL) IVPB ONE (16:35)
[2022-03-19] MEDS: PIPERACILLIN/TAZOB 3.375 GM 3.375 GM in DEXTROSE 5%-WATER - 50 ML IVPB SCH ×5 (02:18→17:20)
[2022-03-19] MEDS: SODIUM CHLORIDE 1,000 ML IV SCH ×3 (02:18→22:15)
[2022-03-19] MEDS: INSULIN SLIDING SCALE (NOVOLOG) 1 VIAL SQ SCH ×3 (06:45→16:30)
[2022-03-19] MEDS: morphine SULFATE 4 MG/ML VIAL IVPUSH PRN ×3 (10:11→22:09)
[2022-03-19] MEDS: ENOXAPARIN NA (PORCINE) 40 MG/0.4 ML DISP.SYRIN SQ SCH (13:16)
[2022-03-19 15:55] LABS: BASO % 0.4 % (0-2.0); HEMATOCRIT 28.6 % (32.4-45.2); HEMOGLOBIN 9.4 GM/dL (10.7-15.3); LYMPH % 18.5 % (8-40); MCH 26.7 pg (25.7-33.7); MCHC 32.9 g/dl (32.0-36.0); MEAN PLT VOLUME 7.9 fl (7.5-11.1); MONO % 7.2 % (3.8-10.2); NEUT % 72.9 % (42.8-82.8); PLATELET COUNT 219 10^3/uL (134-434); RBC 3.53 M/mm3 (3.60-5.2); RDW 13.8 % (11.6-15.6); WHITE BLOOD COUNT 10.5 K/mm3 (4.0-10.0)
[2022-03-19 16:05] LABS: CALCIUM 7.9 mg/dL (8.5-10.1)
[2022-03-19 16:06] LABS: BLOOD UREA NITROGEN 9.3 mg/dL (7-18); MAGNESIUM 1.9 mg/dL (1.8-2.4)
[2022-03-19 16:09] LABS: CREATININE 0.7 mg/dL (0.55-1.3)
[2022-03-19 16:10] LABS: BILIRUBIN,TOTAL 0.9 mg/dL (0.2-1); TOT PROT 5.3 g/dl (6.4-8.2)
[2022-03-19 16:25] LABS: ALBUMIN 2.4 g/dl (3.4-5.0)
[2022-03-19] MEDS ORDERED: ACETAMINOPHEN 325 MG TABLET (FP) PO PRN (16:32)
[2022-03-19] MEDS ORDERED: PIPERACILLIN/TAZOB 3.375 GM 3.375 GM in DEXTROSE 5%-WATER - 50 ML IVPB SCH (18:00)
[2022-03-19] MEDS ORDERED: SIMETHICONE 80 MG TAB.CHEW (FP) PO ONE (22:05)
[2022-03-20] MEDS: PIPERACILLIN/TAZOB 3.375 GM 3.375 GM in DEXTROSE 5%-WATER - 50 ML IVPB SCH ×3 (01:15→17:22)
[2022-03-20] MEDS: INSULIN SLIDING SCALE (NOVOLOG) 1 VIAL SQ SCH ×4 (05:59→21:43)
[2022-03-20] MEDS: SODIUM CHLORIDE 1,000 ML IV SCH (06:00)
[2022-03-20] MEDS: morphine SULFATE 4 MG/ML VIAL IVPUSH PRN ×3 (06:00→18:51)
[2022-03-20] MEDS: ENOXAPARIN NA (PORCINE) 40 MG/0.4 ML DISP.SYRIN SQ SCH (10:28)
[2022-03-20] MEDS ORDERED: INSULIN SLIDING SCALE (NOVOLOG) 1 VIAL SQ SCH (16:30)
[2022-03-21] MEDS: PIPERACILLIN/TAZOB 3.375 GM 3.375 GM in DEXTROSE 5%-WATER - 50 ML IVPB SCH ×3 (01:03→17:12)
[2022-03-21] MEDS: morphine SULFATE 4 MG/ML VIAL IVPUSH PRN ×2 (05:00→14:11)
[2022-03-21] MEDS: INSULIN SLIDING SCALE (NOVOLOG) 1 VIAL SQ SCH ×4 (06:13→21:06)
[2022-03-21] MEDS: ENOXAPARIN NA (PORCINE) 40 MG/0.4 ML DISP.SYRIN SQ SCH (10:05)
[2022-03-21 12:26] LABS: BASO % 0.6 % (0-2.0); EOS % 2.8 % (0-4.5); HEMATOCRIT 31.5 % (32.4-45.2); HEMOGLOBIN 10.9 GM/dL (10.7-15.3); LYMPH % 25.6 % (8-40); MCH 27.7 pg (25.7-33.7); MCHC 34.6 g/dl (32.0-36.0); MEAN CELL VOLUME 80.1 fl (80-96); MEAN PLT VOLUME 7.3 fl (7.5-11.1); MONO % 7.9 % (3.8-10.2); NEUT % 63.1 % (42.8-82.8); PLATELET COUNT 258 10^3/uL (134-434); RBC 3.94 M/mm3 (3.60-5.2); RDW 13.8 % (11.6-15.6); WHITE BLOOD COUNT 8.2 K/mm3 (4.0-10.0)
[2022-03-21 12:46] LABS: CALCIUM 8.5 mg/dL (8.5-10.1)
[2022-03-21 12:47] LABS: ALBUMIN 2.8 g/dl (3.4-5.0); BLOOD UREA NITROGEN 4.8 mg/dL (7-18); MAGNESIUM 1.9 mg/dL (1.8-2.4)
[2022-03-21 12:50] LABS: CREATININE 0.7 mg/dL (0.55-1.3)
[2022-03-21 12:51] LABS: BILIRUBIN,TOTAL 1.2 mg/dL (0.2-1); TOT PROT 6.1 g/dl (6.4-8.2)
[2022-03-21] MEDS: oxyCODONE HCL 5 MG TABLET PO PRN (20:45)
[2022-03-22] MEDS: AMOX TR/POT CLAV 875MG/125MG TABLETS (FP) PO SCH ×3 (00:04→16:36)
[2022-03-22] MEDS: oxyCODONE HCL 5 MG TABLET PO PRN ×3 (04:32→18:58)
[2022-03-22] MEDS: INSULIN SLIDING SCALE (NOVOLOG) 1 VIAL SQ SCH ×4 (06:23→21:20)
[2022-03-22 07:50] LABS: BASO % 0.7 % (0-2.0); EOS % 2.9 % (0-4.5); HEMATOCRIT 34.6 % (32.4-45.2); HEMOGLOBIN 11.6 GM/dL (10.7-15.3); LYMPH % 27.5 % (8-40); MCH 26.6 pg (25.7-33.7); MCHC 33.5 g/dl (32.0-36.0); MEAN CELL VOLUME 79.3 fl (80-96); MEAN PLT VOLUME 7.5 fl (7.5-11.1); MONO % 6.4 % (3.8-10.2); NEUT % 62.5 % (42.8-82.8); PLATELET COUNT 327 10^3/uL (134-434); RBC 4.36 M/mm3 (3.60-5.2); RDW 13.4 % (11.6-15.6); WHITE BLOOD COUNT 11.1 K/mm3 (4.0-10.0)
[2022-03-22 08:14] LABS: ALBUMIN 3.1 g/dl (3.4-5.0)
[2022-03-22 08:15] LABS: BLOOD UREA NITROGEN 5.4 mg/dL (7-18)
[2022-03-22 08:18] LABS: CREATININE 0.6 mg/dL (0.55-1.3)
[2022-03-22 08:20] LABS: BILIRUBIN,TOTAL 1.2 mg/dL (0.2-1); TOT PROT 6.6 g/dl (6.4-8.2)
[2022-03-22] MEDS: ENOXAPARIN NA (PORCINE) 40 MG/0.4 ML DISP.SYRIN SQ SCH (09:00)
[2022-03-23] MEDS ORDERED: INSULIN (NOVOLOG) ASPART 100 UNITS/ML 10ML VIAL ONE (05:43)
[2022-03-23] MEDS: INSULIN SLIDING SCALE (NOVOLOG) 1 VIAL SQ SCH ×3 (06:20→16:48)
[2022-03-23] MEDS: oxyCODONE HCL 5 MG TABLET PO PRN ×2 (06:41→18:22)
[2022-03-23] MEDS ORDERED: POLYETHYLENE GLYCOL (HEALTHYLAX) 3350 17 GM PACKET PO SCH ×3 (06:45→14:00)
[2022-03-23 09:18] LABS: BASO % 0.5 % (0-2.0); EOS % 2.5 % (0-4.5); HEMATOCRIT 33.8 % (32.4-45.2); HEMOGLOBIN 11.2 GM/dL (10.7-15.3); LYMPH % 21.9 % (8-40); MCH 26.4 pg (25.7-33.7); MCHC 33.2 g/dl (32.0-36.0); MEAN CELL VOLUME 79.6 fl (80-96); MEAN PLT VOLUME 7.4 fl (7.5-11.1); MONO % 7.8 % (3.8-10.2); NEUT % 67.3 % (42.8-82.8); PLATELET COUNT 325 10^3/uL (134-434); RBC 4.24 M/mm3 (3.60-5.2); RDW 13.9 % (11.6-15.6); WHITE BLOOD COUNT 9.5 K/mm3 (4.0-10.0)
[2022-03-23] MEDS: AMOX TR/POT CLAV 875MG/125MG TABLETS (FP) PO SCH ×2 (09:43→18:22)
[2022-03-23] MEDS: ENOXAPARIN NA (PORCINE) 40 MG/0.4 ML DISP.SYRIN SQ SCH ×2 (09:47→09:51)
[2022-03-23 09:52] LABS: BLOOD UREA NITROGEN 6.2 mg/dL (7-18); MAGNESIUM 2.1 mg/dL (1.8-2.4)
[2022-03-23 09:55] LABS: CREATININE 0.6 mg/dL (0.55-1.3)
[2022-03-23 09:56] LABS: BILIRUBIN,TOTAL 1.2 mg/dL (0.2-1); TOT PROT 6.4 g/dl (6.4-8.2)
[2022-03-23 15:09] VITALS: BP 140/56; PULSE 80; RESP 18; TEMP 98.3
== END 2022-03-23 18:00 | disposition home or self-care (01) | DRG 907 ==
LOC: JER 18:05 → JERBED 20:17 → INTOOBSV 20:17 → OBSVTOIN 20:17 → J4S 03-18 04:59 → OBSVTOIN 03-18 10:10 → J7W 03-22 18:46
PROVIDERS: ADMIT Internal Medicine; ATTEND Nurse Practitioner Acute Care
PROC: 0D1N4Z4 Bypass Sigmoid Colon to Cutaneous, Percutaneous Endoscopic Approach (ICD-10-PCS; principal; 2022-03-18)
PROC: 0DTN4ZZ Resection of Sigmoid Colon, Percutaneous Endoscopic Approach (ICD-10-PCS; 2022-03-18)
DX: K91.71 Accidental puncture and laceration of a digestive system organ or structure during a digestive system procedure (principal); A41.9 Sepsis, unspecified organism; K63.1 Perforation of intestine (nontraumatic); S31.609A Unspecified open wound of abdominal wall, unspecified quadrant with penetration into peritoneal cavity, initial encounter; J98.11 Atelectasis; K57.32 Diverticulitis of large intestine without perforation or abscess without bleeding; S36.69XA Other injury of rectum, initial encounter; E66.9 Obesity, unspecified; R09.02 Hypoxemia; K57.30 Diverticulosis of large intestine without perforation or abscess without bleeding; D72.829 Elevated white blood cell count, unspecified; R74.01 Elevation of levels of liver transaminase levels; E11.65 Type 2 diabetes mellitus with hyperglycemia; X58.XXXA Exposure to other specified factors, initial encounter; Y93.9 Activity, unspecified; Y92.89 Other specified places as the place of occurrence of the external cause; Y83.9 Surgical procedure, unspecified as the cause of abnormal reaction of the patient, or of later complication, without mention of misadventure at the time of the procedure
CPT/HCPCS: 0241U-QW; 36415; 71045-TC-FY; 74176-TC; 80053; 82010; 82962; 83605; 83690; 83735; 84100; 85025; 85610; 85730; 86850; 86900; 86901; 88307-TC; 93005; 93010; 93306-TC; 94010; 94760; 97116-GP; 99285-25; G0378

== ENCOUNTER 2022-06-02 04:33 | Day surgery (SDC) | payer OTHER ==
[2022-05-30 11:22] VITALS: BMI 30.2
[2022-06-02 14:59] VITALS: BP 119/71; PULSE 71; RESP 21; TEMP 97.8
== END 2022-06-02 14:50 | disposition home or self-care (01) ==
LOC: JASU-ENDO 04:33
PROVIDERS: ATTEND Internal Medicine Gastroenterology
PROC: 0DJD8ZZ Inspection of Lower Intestinal Tract, Via Natural or Artificial Opening Endoscopic (ICD-10-PCS; principal; 2022-06-02 12:30)
DX: Z12.11 Encounter for screening for malignant neoplasm of colon (principal); E11.9 Type 2 diabetes mellitus without complications; Z79.84 Long term (current) use of oral hypoglycemic drugs
CPT/HCPCS: 82962

== ENCOUNTER 2022-08-23 04:08 | Inpatient (IN) | payer OTHER ==
[2022-08-18 12:56] VITALS: BMI 30.7
[2022-08-23] MEDS ORDERED: cefOXitin SODIUM 2 GM VIAL (RESTRICTED TO ID) IVPB ONE (11:43)
[2022-08-23] MEDS ORDERED: HEPARIN NA (PORCINE) 5,000 UNITS/ML 1ML VIAL ONE (11:43)
[2022-08-23] MEDS ORDERED: BUPIVACAINE HCL/PF 0.25% (2.5MG/ML) 10 ML VIAL ONE (11:43)
[2022-08-23] MEDS ORDERED: PROPOFOL 40 ML ONE (11:45)
[2022-08-23] MEDS ORDERED: MIDAZOLAM HCL 2 MG/2 ML SINGLE DOSE VIAL ONE (11:45)
[2022-08-23] MEDS ORDERED: ROCURONIUM BROMIDE 50 MG/5 ML SYRINGE ONE ×2 (11:47→12:38)
[2022-08-23] MEDS ORDERED: LIDOCAINE HCL/PF 2% SDV 5ML VIAL ONE (11:51)
[2022-08-23] MEDS ORDERED: cefOXitin SODIUM 1 GM VIAL (RESTRICTED TO ID) IVPB ONE (12:24)
[2022-08-23] MEDS ORDERED: BUPIVACAINE HCL/PF 0.25% (2.5MG/ML) 10 ML VIAL IJ ONE (14:30)
[2022-08-23] MEDS ORDERED: ONDANSETRON 4 MG/2 ML VIAL ONE (15:17)
[2022-08-23] MEDS ORDERED: NEOSTIGMINE METHYLSULFATE 0.5 MG/1 ML - 10 ML MDV ONE (15:50)
[2022-08-23] MEDS ORDERED: GLYCOPYRROLATE 0.2 MG/1 ML VIAL ONE (15:51)
[2022-08-23] MEDS ORDERED: ACETAMINOPHEN 1000 MG/100 ML BAG IVPB ONE (16:17)
[2022-08-23] MEDS ORDERED: ONDANSETRON 4 MG/2 ML VIAL IVPUSH PRN ×2 (16:17→16:31)
[2022-08-23] MEDS ORDERED: ACETAMINOPHEN INJECTION 100 ML IVPB ONE (16:22)
[2022-08-23] MEDS ORDERED: LACTATED RINGERS SOLUTION 1,000 ML IV SCH (16:30)
[2022-08-23] MEDS ORDERED: oxyCODONE HCL 5 MG TABLET PO PRN (16:46)
[2022-08-23] MEDS ORDERED: HYDROmorphone *PCA* 10MG/50ML DISP.SYRIN ONE (18:15)
[2022-08-23] MEDS ORDERED: HYDROmorphone *PCA* 10MG/50ML DISP.SYRIN PCA SCH (18:15)
[2022-08-23] MEDS ORDERED: cefOXitin SODIUM 1 GM/10 ML PUSH (RESTRICTED TO ID) IVPUSH SCH (21:00)
[2022-08-23] MEDS: SODIUM CHLORIDE 1,000 ML IV SCH (22:30)
[2022-08-23] MEDS: IBUPROFEN 600 MG TABLET (FP) PO SCH (22:33)
[2022-08-23] MEDS: GABAPENTIN 100 MG CAPSULE PO SCH (22:34)
[2022-08-23] MEDS: HEPARIN NA (PORCINE) 5,000 UNITS/ML 1ML VIAL SQ SCH (22:34)
[2022-08-23] MEDS: ACETAMINOPHEN 1000 MG/100 ML BAG IVPB SCH (22:35)
[2022-08-23] MEDS: INSULIN SLIDING SCALE (NOVOLOG) 1 VIAL SQ SCH (22:45)
[2022-08-23] MEDS: CEFOXITIN SODIUM 1 GM in DEXTROSE 5%-WATER 100 ML IVPB SCH (23:33)
[2022-08-24] MEDS: IBUPROFEN 600 MG TABLET (FP) PO SCH ×3 (05:15→22:05)
[2022-08-24] MEDS: ACETAMINOPHEN 1000 MG/100 ML BAG IVPB SCH ×2 (05:16→11:49)
[2022-08-24] MEDS: HEPARIN NA (PORCINE) 5,000 UNITS/ML 1ML VIAL SQ SCH ×3 (05:20→22:05)
[2022-08-24] MEDS: GABAPENTIN 100 MG CAPSULE PO SCH ×3 (05:20→22:04)
[2022-08-24] MEDS: CEFOXITIN SODIUM 1 GM in DEXTROSE 5%-WATER 100 ML IVPB SCH ×2 (06:06→14:31)
[2022-08-24] MEDS: INSULIN SLIDING SCALE (NOVOLOG) 1 VIAL SQ SCH ×4 (06:17→22:06)
[2022-08-24 09:02] LABS: BASO % 0.2 % (0-2.0); EOS % 0.2 % (0-4.5); HEMATOCRIT 33.1 % (32.4-45.2); LYMPH % 15.5 % (8-40); MCH 25.5 pg (25.7-33.7); MCHC 33.2 g/dl (32.0-36.0); MEAN CELL VOLUME 76.8 fl (80-96); MEAN PLT VOLUME 7.6 fl (7.5-11.1); MONO % 7.7 % (3.8-10.2); NEUT % 76.4 % (42.8-82.8); PLATELET COUNT 262 10^3/uL (134-434); RBC 4.31 M/mm3 (3.60-5.2); RDW 14.6 % (11.6-15.6); WHITE BLOOD COUNT 12.2 K/mm3 (4.0-10.0)
[2022-08-24 09:46] LABS: TOT PROT 5.8 g/dl (6.4-8.2)
[2022-08-24 09:47] LABS: BLOOD UREA NITROGEN 6.6 mg/dL (7-18)
[2022-08-24 09:50] LABS: CREATININE 0.9 mg/dL (0.55-1.3)
[2022-08-24 09:57] LABS: CALCIUM 8.5 mg/dL (8.5-10.1)
[2022-08-24] MEDS ORDERED: ACETAMINOPHEN 500 MG TABLET (FP) PO SCH (20:00)
[2022-08-24] MEDS: SODIUM CHLORIDE 1,000 ML IV SCH ×2 (21:05→22:15)
[2022-08-25] MEDS: ACETAMINOPHEN 500 MG TABLET (FP) PO SCH ×4 (02:02→17:53)
[2022-08-25] MEDS: SODIUM CHLORIDE 1,000 ML IV SCH (04:50)
[2022-08-25] MEDS: HEPARIN NA (PORCINE) 5,000 UNITS/ML 1ML VIAL SQ SCH ×3 (06:32→21:50)
[2022-08-25] MEDS: GABAPENTIN 100 MG CAPSULE PO SCH ×3 (06:33→21:40)
[2022-08-25] MEDS: IBUPROFEN 600 MG TABLET (FP) PO SCH ×3 (06:33→21:51)
[2022-08-25] MEDS: INSULIN SLIDING SCALE (NOVOLOG) 1 VIAL SQ SCH ×4 (06:39→21:51)
[2022-08-25 08:13] LABS: CALCIUM 8.1 mg/dL (8.5-10.1)
[2022-08-25 08:14] LABS: ALBUMIN 2.6 g/dl (3.4-5.0); BLOOD UREA NITROGEN 3.7 mg/dL (7-18); MAGNESIUM 1.7 mg/dL (1.8-2.4)
[2022-08-25 08:17] LABS: CREATININE 0.6 mg/dL (0.55-1.3)
[2022-08-25] MEDS: oxyCODONE HCL 5 MG TABLET PO PRN ×2 (08:18→15:04)
[2022-08-25 08:19] LABS: BILIRUBIN,TOTAL 0.7 mg/dL (0.2-1)
[2022-08-25 08:21] LABS: BASO % 0.6 % (0-2.0); EOS % 3.2 % (0-4.5); HEMOGLOBIN 10.1 GM/dL (10.7-15.3); LYMPH % 30.3 % (8-40); MCH 26.7 pg (25.7-33.7); MCHC 33.8 g/dl (32.0-36.0); MEAN CELL VOLUME 78.9 fl (80-96); MEAN PLT VOLUME 7.7 fl (7.5-11.1); MONO % 8.3 % (3.8-10.2); NEUT % 57.6 % (42.8-82.8); PLATELET COUNT 228 10^3/uL (134-434); RDW 14.8 % (11.6-15.6); TOT PROT 5.3 g/dl (6.4-8.2); WHITE BLOOD COUNT 7.9 K/mm3 (4.0-10.0)
[2022-08-25 15:13] VITALS: RESP 18
[2022-08-25] MEDS ORDERED: oxyCODONE HCL 5 MG TABLET PO PRN (15:39)
[2022-08-25] MEDS: morphine SULFATE 4 MG/ML VIAL IVPUSH PRN ×2 (16:11→21:43)
[2022-08-26] MEDS: ACETAMINOPHEN 500 MG TABLET (FP) PO SCH ×4 (00:23→17:27)
[2022-08-26] MEDS: IBUPROFEN 600 MG TABLET (FP) PO SCH ×2 (04:28→14:34)
[2022-08-26] MEDS: HEPARIN NA (PORCINE) 5,000 UNITS/ML 1ML VIAL SQ SCH ×2 (05:47→14:34)
[2022-08-26] MEDS: GABAPENTIN 100 MG CAPSULE PO SCH ×2 (05:47→14:34)
[2022-08-26] MEDS: INSULIN SLIDING SCALE (NOVOLOG) 1 VIAL SQ SCH ×3 (07:02→17:28)
[2022-08-26 09:11] LABS: BASO % 0.7 % (0-2.0); EOS % 4.5 % (0-4.5); HEMATOCRIT 30.8 % (32.4-45.2); HEMOGLOBIN 10.7 GM/dL (10.7-15.3); LYMPH % 31.6 % (8-40); MCH 27.1 pg (25.7-33.7); MCHC 34.9 g/dl (32.0-36.0); MEAN CELL VOLUME 77.4 fl (80-96); MEAN PLT VOLUME 7.7 fl (7.5-11.1); MONO % 7.8 % (3.8-10.2); NEUT % 55.4 % (42.8-82.8); PLATELET COUNT 236 10^3/uL (134-434); RBC 3.97 M/mm3 (3.60-5.2); RDW 14.8 % (11.6-15.6); WHITE BLOOD COUNT 6.8 K/mm3 (4.0-10.0)
[2022-08-26 09:15] LABS: CALCIUM 8.8 mg/dL (8.5-10.1)
[2022-08-26 09:16] LABS: ALBUMIN 2.9 g/dl (3.4-5.0); BLOOD UREA NITROGEN 3.6 mg/dL (7-18); MAGNESIUM 1.8 mg/dL (1.8-2.4)
[2022-08-26 09:19] LABS: CREATININE 0.6 mg/dL (0.55-1.3)
[2022-08-26 09:20] LABS: BILIRUBIN,TOTAL 0.6 mg/dL (0.2-1); TOT PROT 5.9 g/dl (6.4-8.2)
[2022-08-26] MEDS ORDERED: INSULIN (NOVOLOG) ASPART 100 UNITS/ML 10ML VIAL ONE (11:28)
[2022-08-26 14:35] VITALS: BP 123/64; PULSE 66; TEMP 98
[2022-08-26] MEDS: oxyCODONE HCL 5 MG TABLET PO PRN (16:21)
== END 2022-08-26 18:05 | disposition home health service (06) | DRG 331 ==
LOC: J2C 04:08 → J8W 18:51
PROVIDERS: ADMIT Surgery; ATTEND Nurse Practitioner Family
PROC: 0DBM4ZZ Excision of Descending Colon, Percutaneous Endoscopic Approach (ICD-10-PCS; 2022-08-23)
PROC: 0DNW4ZZ Release Peritoneum, Percutaneous Endoscopic Approach (ICD-10-PCS; 2022-08-23)
PROC: 8E0W4CZ Robotic Assisted Procedure of Trunk Region, Percutaneous Endoscopic Approach (ICD-10-PCS; 2022-08-23)
PROC: 0DSM4ZZ Reposition Descending Colon, Percutaneous Endoscopic Approach (ICD-10-PCS; principal; 2022-08-23 11:00)
DX: Z43.3 Encounter for attention to colostomy (principal); G89.18 Other acute postprocedural pain; E11.9 Type 2 diabetes mellitus without complications; K66.0 Peritoneal adhesions (postprocedural) (postinfection); D72.829 Elevated white blood cell count, unspecified
CPT/HCPCS: 36415; 80053; 82962; 83735; 85025; 86140; 88304-TC; 94760; 97116-GP; 97161-GP; J1644

== ENCOUNTER 2023-04-09 18:18 | Emergency (ER) | payer OTHER ==
[2023-04-09 18:27] VITALS: BP 159/76; PULSE 93; RESP 18; TEMP 98.6; BMI 30.2
[2023-04-09] MEDS ORDERED: SODIUM CHLORIDE 500 ML IV STA (20:50)
[2023-04-09] MEDS ORDERED: METOCLOPRAMIDE HCL INJECTION 10 MG/2 ML VIAL IVPB ONE (20:50)
[2023-04-09] MEDS ORDERED: ACETAMINOPHEN 1000 MG/100 ML BAG IVPB ONE (20:54)
[2023-04-09] MEDS ORDERED: ACETAMINOPHEN INJECTION 100 ML IVPB ONE (21:20)
[2023-04-09] MEDS ORDERED: METOCLOPRAMIDE HCL INJECTION 10 MG/2 ML VIAL ONE (21:20)
[2023-04-09 21:24] LABS: BASO % 1.1 % (0-2.0); EOS % 3.4 % (0-4.5); HEMATOCRIT 39.5 % (32.4-45.2); HEMOGLOBIN 13.7 GM/dL (10.7-15.3); LYMPH % 33.2 % (8-40); MCH 27.4 pg (25.7-33.7); MCHC 34.6 g/dl (32.0-36.0); MEAN CELL VOLUME 79.3 fl (80-96); MONO % 6.3 % (3.8-10.2); PLATELET COUNT 309 10^3/uL (134-434); RBC 4.98 M/mm3 (3.60-5.2); RDW 14.2 % (11.6-15.6); WHITE BLOOD COUNT 9.9 K/mm3 (4.0-10.0)
[2023-04-09 21:47] LABS: POTASSIUM 4.5 mmol/L (3.5-5.1)
[2023-04-09 21:49] LABS: CALCIUM 9.1 mg/dL (8.5-10.1)
[2023-04-09 21:50] LABS: ALBUMIN 3.8 g/dl (3.4-5.0); BLOOD UREA NITROGEN 8.3 mg/dL (7-18)
[2023-04-09 21:54] LABS: BILIRUBIN,TOTAL 0.5 mg/dL (0.2-1); TOT PROT 7.5 g/dl (6.4-8.2)
[2023-04-09 23:16] LABS: EPI CELLS 9 /uL (0-25.1); HYALINE CASTS 1 /uL (0-3.1); PH,URINE 5.5 (5.0-8.0); URINE APPEARANCE CLEAR; URINE BACTERIA 2055 /uL (0-1359); URINE BILIRUBIN NEGATIVE (NEGATIVE); URINE COLOR YELLOW; URINE GLUCOSE (UA) NEGATIVE (NEGATIVE); URINE KETONE NEGATIVE (NEGATIVE); URINE LEUK ESTERASE 1+ (NEGATIVE); URINE NITRITE NEGATIVE (NEGATIVE); URINE PROTEIN NEGATIVE (NEGATIVE); URINE RBC 14 /uL (0-23.9); URINE UROBILINOGEN 0.2 mg/dL (0.2-1.0); URINE WBC 302 /uL (0-25.8)
== END 2023-04-10 00:30 | disposition home or self-care (01) ==
LOC: JER 18:18
PROC: 3E033NZ Introduction of Analgesics, Hypnotics, Sedatives into Peripheral Vein, Percutaneous Approach (ICD-10-PCS; principal; 2023-04-09)
PROC: 3E033GC Introduction of Other Therapeutic Substance into Peripheral Vein, Percutaneous Approach (ICD-10-PCS; 2023-04-09)
PROC: 3E0337Z Introduction of Electrolytic and Water Balance Substance into Peripheral Vein, Percutaneous Approach (ICD-10-PCS; 2023-04-09)
DX: R42 Dizziness and giddiness (principal); R51.9 Headache, unspecified; R19.7 Diarrhea, unspecified; R53.83 Other fatigue; R53.1 Weakness; N39.0 Urinary tract infection, site not specified; Z20.822 Contact with and (suspected) exposure to COVID-19
CPT/HCPCS: 0241U-QW; 36415; 71046-TC-FY; 80053; 81003; 84484; 85025; 93005; 93010; 99285-25

== ENCOUNTER 2023-09-20 11:31 | Emergency (ER) | payer OTHER ==
[2023-09-20 11:44] VITALS: BMI 31.6
[2023-09-20] MEDS: SODIUM CHLORIDE FOR INHALATION 3 ML VIAL.NEB IH ONE (13:05)
[2023-09-20] MEDS: FLUTICASONE PROP 0.05% 16 GM NASAL SPRAY NS ONE (13:32)
[2023-09-20 15:34] VITALS: BP 121/75; PULSE 99; RESP 21; TEMP 98.7
== END 2023-09-20 15:35 | disposition home or self-care (01) ==
LOC: JER 11:31
DX: R06.02 Shortness of breath (principal); R05.9 Cough, unspecified; R09.81 Nasal congestion; R68.83 Chills (without fever); R09.82 Postnasal drip; J01.20 Acute ethmoidal sinusitis, unspecified
CPT/HCPCS: 99283-25